=== PATIENT | male | born 2000 | race Caucasian/White ===

== ENCOUNTER → 2018-06-23 21:00 | Outpatient (CLI) | payer OTHER, SELFPAY ==
[2018-06-23 21:31] LABS: Free T3 3.2 pg/mL (2.18-3.98); T4 Free Direct 1.02 ng/dL (0.76-1.46); Thyroid Stim Hormone (TSH) 3.45 uIU/mL (0.358-3.74)
== END ==
PROVIDERS: Visit Provider Nurse Practitioner
DX: F41.9 Anxiety disorder, unspecified (principal); R53.82 Chronic fatigue, unspecified; F32.9 Major depressive disorder, single episode, unspecified
CPT/HCPCS: 84439; 84443; 84481

== ENCOUNTER → 2018-08-05 21:05 | Outpatient (CLI) | payer OTHER, SELFPAY ==
[2018-08-05 21:35] LABS: Thyroid Stim Hormone (TSH) 0.95 uIU/mL (0.358-3.74)
== END ==
PROVIDERS: Referring Provider Nurse Practitioner; Visit Provider Nurse Practitioner
DX: E03.9 Hypothyroidism, unspecified (principal)
CPT/HCPCS: 84443

== ENCOUNTER → 2019-06-01 22:30 | Outpatient (CLI) | payer OTHER, SELFPAY ==
[2019-06-01 17:32] VITALS: BMI 40.6
[2019-06-01 22:48] LABS: Absolute Lymphocyte Count 2.14 X10^3/uL (0.83-4.51); Basophil# 0.05 X10^3/uL; Basophil% 0.7 % (0-1); Eosinophil# 0.25 X10^3/uL; Eosinophils% 3.6 % (0-5); Hematocrit 41.8 % (40-54); Lymphocyte # 2.14 X10^3/ul (4.0); Lymphocyte % 31.1 % (19-41); Mean Corp Hgb Conc 33.5 g/dL (32-36); Mean Corpuscular Volume 86.7 fL (80-94); Mean Platelet Vol. 11.9 fl (6.2-12.0); Monocyte# 0.46 X10^3/uL; Monocyte% 6.7 % (0-10); NRBC Flagged by Analyzer 0 % (0-5); Neutrophil # 3.98 X10^3/uL (2.7-7.7); Neutrophil % 57.8 % (47-70); Platelet Count 222 K/mm3 (150-450); RBC Distribution Width CV 12.1 % (11.6-14.6); RBC Distribution Width SD 38.4 fl (35.1-43.9); Red Blood Count 4.82 M/mm3 (4.6-6.2); White Blood Count 6.9 K/mm3 (4.4-11.0)
[2019-06-01 23:11] LABS: ALB/GLOB Ratio 1.2 RATIO (0.9-2.4); AST(SGOT) 25 U/L (15-37); Alanine Aminotransfer ALT/SGPT 69 U/L (16-61); Alkaline Phosphatase 103 U/L (45-117); Anion Gap 8 (5-15); BUN 15 mg/dL (7-18); BUN/Creat Ratio 17.6 RATIO (10-20); CRP 7.15 mg/L (0.0-3.0); Calcium,Total 8.9 mg/dL (8.5-10.1); Chloride 105 mmol/L (98-107); Creatinine, Serum 0.85 mg/dL (0.70-1.30); EST Glomerular Filtration Rate 121 mL/min (>60); Est Glom Filt Rate - Afr Amer 146 mL/min (>60); Globulin 3.4 g/dL (2.2-4.2); Glucose 102 mg/dL (74-106); Potassium 3.8 mmol/L (3.5-5.1); Protein, Total 7.4 g/dL (6.4-8.2); Sodium Level 138 mmol/L (136-145); Thyroid Stim Hormone (TSH) 0.51 uIU/mL (0.358-3.74)
[2019-06-03 16:08] LABS: ANTINUCLEAR ANTIBODIES DIRECT Positive (Negative); Anti-Centromere B Ab <0.2 AI (0.0-0.9); Anti-Chromatin <0.2 AI (0.0-0.9); Anti-Jo <0.2 AI (0.0-0.9); Anti-Scleroderma-70 AB <0.2 AI (0.0-0.9); RNP Ab <0.2 AI (0.0-0.9); SJOGREN'S Anti-SS-A test < 0.2 AI (0.0-0.9); SJOGREN'S Anti-SS-B test 2.1 AI (0.0-0.9); Smith Ab <0.2 AI (0.0-0.9)
[2019-06-03 20:07] LABS: Immunoglobulin A 86 mg/dL (90-386)
[2019-06-04 10:02] LABS: Anti-dsDNA Ab <1 IU/mL (0-9)
[2019-06-04 10:03] LABS: CMV Antibody IgG < 0.60 U/mL (0.00-0.59); EBV Acute VCA IgM < 36.0 U/mL (0.0-35.9); EBV Early Antigen IgG <9.0 U/mL (0.0-8.9); Endomysial Antibody IgA Negative (Negative); Thyroid Peroxidase AB 18 IU/mL (0-34); t-Transglutaminase IgA <2 U/mL (0-3)
== END ==
PROVIDERS: Referring Provider Nurse Practitioner; Visit Provider Nurse Practitioner
DX: E03.9 Hypothyroidism, unspecified (principal); B27.90 Infectious mononucleosis, unspecified without complication; R53.82 Chronic fatigue, unspecified; R19.7 Diarrhea, unspecified
CPT/HCPCS: 80053; 82784; 83516; 84443; 85025; 86038; 86140; 86225; 86235; 86255; 86376; 86644; 86663; 86664; 86665

== ENCOUNTER → 2019-08-19 10:16 | Outpatient (CLI) | payer OTHER, SELFPAY ==
[2019-08-02 16:16] VITALS: BMI 40.1
--- NOTE | 2019-08-19 10:23 | RAD_ITS ---
STUDY: X-RAY - PELVIS REASON FOR EXAM: Male, 19 years old. Inflammatory polyarthropathy. TECHNIQUE: One view of the pelvis was obtained. COMPARISON: None. FINDINGS: There is a non-specific bowel gas pattern. Normal visualized soft tissue structures. Normal bilateral iliac wings, sacroiliac joints and visualized sacrum. Normal visualized bilateral superior and inferior pubic rami. Normal pubic symphysis. Normal ischial tuberosities. Normal visualized right femoral head. Normal right acetabulum. Normal right hip joint. Normal visualized left femoral head. Normal left acetabulum. Normal left hip joint. RAD/Pelvis 1 or 2 Views IMPRESSION: No proliferative or erosive arthropathy Electronically Signed: Yuan Saleh MD ([place]) at 12:41 EDT , Service support ,
[2019-08-19 11:26] LABS: EXAGEN MAILED SPECIMEN
[2019-08-19 12:09] LABS: Absolute Lymphocyte Count 1.83 X10^3/uL (0.83-4.51); Basophil# 0.04 X10^3/uL; Basophil% 0.8 % (0-1); Eosinophil# 0.11 X10^3/uL; Eosinophils% 2.1 % (0-5); Hematocrit 43.9 % (40-54); Hemoglobin 14.6 g/dL (13.0-16.5); Lymphocyte # 1.83 X10^3/ul (4.0); Lymphocyte % 34.5 % (19-41); Mean Corp Hgb Conc 33.3 g/dL (32-36); Mean Corpuscular Hgb 29.2 pg (27.0-32.0); Mean Corpuscular Volume 87.8 fL (80-94); Mean Platelet Vol. 11.6 fl (6.2-12.0); Monocyte# 0.33 X10^3/uL; Monocyte% 6.2 % (0-10); NRBC Flagged by Analyzer 0 % (0-5); Neutrophil # 2.98 X10^3/uL (2.7-7.7); Neutrophil % 56.2 % (47-70); Platelet Count 246 K/mm3 (150-450); RBC Distribution Width CV 12.2 % (11.6-14.6); RBC Distribution Width SD 38.9 fl (35.1-43.9); White Blood Count 5.3 K/mm3 (4.4-11.0)
[2019-08-19 12:14] LABS: Color, Urine Yellow (Yellow); Glucose, Dipstick Normal (Normal); Ketone-Dipstick Negative (Negative); Leukocyte Esterase-Dipstick Negative /ul (Negative); Nitrite-Dipstick Negative (Negative); Occult Blood-Urine Negative /ul (Negative); Protein-Dipstick Negative (Negative); Specific Gravity, Urine 1.015 (1.002-1.030); Urine Bilirubin Dipstick Negative (Negative); Urine Clarity Clear (Clear); Urine Urobilinogen Normal (Normal)
[2019-08-19 12:28] LABS: Protein, Urine (Random) 12.4 mg/dL (<11.9); Protein:Creat Ratio 100 mg/g CRE (0-200)
[2019-08-19 12:38] LABS: ALB/GLOB Ratio 1.2 RATIO (0.9-2.4); AST(SGOT) 25 U/L (15-37); Alanine Aminotransfer ALT/SGPT 77 U/L (16-61); Albumin, Serum 4.5 g/dL (3.2-5.0); Alkaline Phosphatase 92 U/L (45-117); Anion Gap 8 (5-15); BUN 14 mg/dL (7-18); BUN/Creat Ratio 14.7 RATIO (10-20); Calcium,Total 9.6 mg/dL (8.5-10.1); Chloride 104 mmol/L (98-107); Creatinine, Serum 0.96 mg/dL (0.70-1.30); EST Glomerular Filtration Rate 105 mL/min (>60); Est Glom Filt Rate - Afr Amer 128 mL/min (>60); Globulin 3.8 g/dL (2.2-4.2); Glucose 95 mg/dL (74-106); Potassium 4.1 mmol/L (3.5-5.1); Protein, Total 8.3 g/dL (6.4-8.2); Sodium Level 137 mmol/L (136-145)
[2019-08-19 13:15] LABS: Hepatitis B Surface Antibody Non-Reactive; Hepatitis B Surface Antigen Non-Reactive (Nonreactive); Hepatitis C Antibody Non-Reactive (Nonreactive)
[2019-08-24 12:21] LABS: HLA B27 Negative (.); Hepatitis B Core AB IgM Negative (Negative)
== END ==
PROVIDERS: Family Provider Nurse Practitioner; PCP Nurse Practitioner; Referring Provider Internal Medicine Rheumatology; Visit Provider Internal Medicine Rheumatology
DX: M06.4 Inflammatory polyarthropathy (principal); R76.8 Other specified abnormal immunological findings in serum
CPT/HCPCS: 72170; 80053; 81002; 81374; 82570; 84156; 85025; 86705; 86706; 86803; 87340

== ENCOUNTER → 2019-08-25 21:39 | Outpatient (CLI) | payer OTHER, SELFPAY ==
[2019-08-02 16:16] VITALS: BMI 40.1
[2019-08-25 22:08] LABS: Thyroid Stim Hormone (TSH) 1.59 uIU/mL (0.358-3.74)
== END ==
PROVIDERS: Family Provider Nurse Practitioner; PCP Nurse Practitioner; Referring Provider Nurse Practitioner; Visit Provider Nurse Practitioner
DX: E03.9 Hypothyroidism, unspecified (principal)
CPT/HCPCS: 84443

== ENCOUNTER → 2019-12-08 13:13 | Outpatient (CLI) | payer OTHER, SELFPAY ==
[2019-12-05 17:34] VITALS: BMI 40.7
[2019-12-08 14:16] LABS: Absolute Lymphocyte Count 1.88 X10^3/uL (0.83-4.51); Absolute Neutrophil Count 2.8 X10^3/uL (2.0-7.7); Basophil# 0.03 X10^3/uL; Basophil% 0.5 % (0-1); Eosinophil# 0.26 X10^3/uL; Eosinophils% 4.7 % (0-5); Hematocrit 43.4 % (40-54); Hemoglobin 14.2 g/dL (13.0-16.5); Lymphocyte # 1.88 X10^3/ul (4.0); Lymphocyte % 33.9 % (19-41); Mean Corp Hgb Conc 32.7 g/dL (32-36); Mean Corpuscular Hgb 28.6 pg (27.0-32.0); Mean Corpuscular Volume 87.3 fL (80-94); Mean Platelet Vol. 10.9 fl (6.2-12.0); Monocyte# 0.54 X10^3/uL; Monocyte% 9.7 % (0-10); NRBC Flagged by Analyzer 0 % (0-5); Neutrophil # 2.83 X10^3/uL (2.7-7.7); Platelet Count 231 K/mm3 (150-450); RBC Distribution Width CV 12.4 % (11.6-14.6); RBC Distribution Width SD 39.3 fl (35.1-43.9); Red Blood Count 4.97 M/mm3 (4.6-6.2); White Blood Count 5.6 K/mm3 (4.4-11.0)
[2019-12-08 14:54] LABS: AST(SGOT) 21 U/L (15-37); Alanine Aminotransfer ALT/SGPT 56 U/L (16-61); Albumin, Serum 4.1 g/dL (3.2-5.0); Alkaline Phosphatase 87 U/L (45-117); Anion Gap 3 (5-15); BUN 15 mg/dL (7-18); BUN/Creat Ratio 13.6 RATIO (10-20); Calcium,Total 9.6 mg/dL (8.5-10.1); Chloride 107 mmol/L (98-107); EST Glomerular Filtration Rate 89 mL/min (>60); Est Glom Filt Rate - Afr Amer 108 mL/min (>60); Glucose 63 mg/dL (74-106); Potassium 3.6 mmol/L (3.5-5.1); Protein, Total 8.1 g/dL (6.4-8.2); Sodium Level 142 mmol/L (136-145)
== END ==
PROVIDERS: PCP Nurse Practitioner; Referring Provider Internal Medicine Rheumatology; Visit Provider Internal Medicine Rheumatology
DX: M06.4 Inflammatory polyarthropathy (principal); R76.8 Other specified abnormal immunological findings in serum; I10 Essential (primary) hypertension; E03.9 Hypothyroidism, unspecified; F41.9 Anxiety disorder, unspecified; F32.9 Major depressive disorder, single episode, unspecified
CPT/HCPCS: 36415; 80053; 85025

== ENCOUNTER → 2020-12-21 21:44 | Outpatient (CLI) | payer BC, OTHER, SELFPAY ==
[2020-12-21 15:01] VITALS: BMI 40.3
[2020-12-21 22:01] LABS: Absolute Lymphocyte Count 2.34 X10^3/uL (0.83-4.51); Absolute Neutrophil Count 3.4 X10^3/uL (2.0-7.7); Basophil# 0.03 X10^3/uL; Basophil% 0.5 % (0-1); Eosinophil# 0.11 X10^3/uL; Eosinophils% 1.8 % (0-5); Hematocrit 44.9 % (40-54); Hemoglobin 15.3 g/dL (13.0-16.5); Lymphocyte # 2.34 X10^3/ul (4.0); Lymphocyte % 37.6 % (19-41); Mean Corp Hgb Conc 34.1 g/dL (32-36); Mean Corpuscular Hgb 29.4 pg (27.0-32.0); Mean Corpuscular Volume 86.3 fL (80-94); Mean Platelet Vol. 11.1 fl (6.2-12.0); Monocyte# 0.36 X10^3/uL; Monocyte% 5.8 % (0-10); NRBC Flagged by Analyzer 0 % (0-5); Neutrophil # 3.38 X10^3/uL (2.7-7.7); Neutrophil % 54.1 % (47-70); Platelet Count 250 K/mm3 (150-450); RBC Distribution Width CV 12.2 % (11.6-14.6); RBC Distribution Width SD 38.5 fl (35.1-43.9); White Blood Count 6.2 K/mm3 (4.4-11.0)
[2020-12-21 22:22] LABS: ALB/GLOB Ratio 1.1 RATIO (0.9-2.4); AST(SGOT) 20 U/L (15-37); Alanine Aminotransfer ALT/SGPT 60 U/L (16-61); Albumin, Serum 4.5 g/dL (3.2-5.0); Alkaline Phosphatase 95 U/L (45-117); Anion Gap 7 (5-15); BUN 15 mg/dL (7-18); BUN/Creat Ratio 14.4 RATIO (10-20); Calcium,Total 9.7 mg/dL (8.5-10.1); Chloride 104 mmol/L (98-107); Creatinine, Serum 1.04 mg/dL (0.70-1.30); EST Glomerular Filtration Rate 94 mL/min (>60); Est Glom Filt Rate - Afr Amer 114 mL/min (>60); Glucose 87 mg/dL (74-106); Potassium 3.9 mmol/L (3.5-5.1); Protein, Total 8.5 g/dL (6.4-8.2); Sodium Level 139 mmol/L (136-145); Thyroid Stim Hormone (TSH) 1.47 uIU/mL (0.358-3.74)
== END ==
PROVIDERS: PCP Nurse Practitioner; Visit Provider Nurse Practitioner
DX: I10 Essential (primary) hypertension (principal); E03.9 Hypothyroidism, unspecified
CPT/HCPCS: 80053; 84443; 85025

== ENCOUNTER 2021-10-31 10:30 | Outpatient (RCR) | payer OTHER, SELFPAY ==
--- NOTE | 2021-10-07 09:49 | HP.PTEVAL ---
Patient's Visit Information ROYCE FELDMAN is a 21 year old M referred to Physical Therapy by Dr. Heriberto Capone MD with a diagnosis of R shoulder instability. Date of Evaluation: 10/07/21 Physical Therapist: Marcial Cooney PT, ATC - Visit Plan Frequency: 2-3x /Week Duration: 4-6 Weeks Plan: R shoulder rot cuff strengthening, scap stab ex's, UBE, and HEP - Subjective Pt reports he has had R shoulder pain for the past 6 mos. Pt notes he was playing softball at the time and after throwing a ball, his R UE went numb. Pt reports he has had pain since, especially with any overhead or throwing activity. Pt reports he kept icing and hoped his shoulder would get better, but it didnt and finally he went to the doctor. Pt notes he has had xrays and an MRI which showed bursitis and instability of the R shoulder. Pt reports occasional sleep difficulty if he sleeps wrong on his shoulder. Pt denies any tingling or numbness at this time. Pt reports he is R hand dominant. Pt is not currently employed. R shoulder pain is 0/10 at rest, 3/10 at worst (when he is driving and reaches his arm out to the side to rest it on the other arm rest - Pain R shoulder Pain Intensity (Out of 10): 0 Pain Intensity Range: 3 - Objective Neuro: B UE sensation is WNL to light touch. B bicepital reflex= 2/3. Palpation: Pt has mild tenderness over the LHB tendon. No obvious deformity noted at this time. ROM: L shoulder flex= 165, abd= 170, ER= 50, IR WNL; R shoulder flex= 135, abd= 140, ER= 30, IR WNL. MMT: B shoulder strength is 5/5 throughout with the exception of R shoulder ER= 4-/5. Special tests: Pos HK test - Balance/Special Test Scores Quick DASH Score: 20.4525 - Goals Goal 1:: Decrease R shoulder pain x 50% to aid with sleep Goal Time Frame: 4-6 Weeks Goal 2:: Increase R shoulder strength x 1 grade to aid with IADL's Goal Time Frame: 4-6 Weeks Goal 3:: Increase R shoulder flex and abd ROM x 20 degrees to aid with overhead activity Goal Time Frame: 4-6 Weeks Goal 4:: I with HEP Goal Time Frame: 4-6 Weeks - Rehabilitation Potential Physical Therapy Diagnosis: Pt has R shoulder pain, weakness, and instability secondary to R shoulder bursitis Rehabilitation Potential: Good - Anticipated Interventions Patient/Client Instruction: Educate patient on: Condition, Plan of Care For the Purpose of:: To improve self management Therapeutic Exercise to Include: Strength training, Endurance training, Body mechanics, Active ROM, Scapular Strength/Stabilization For the Purpose of:: To decrease pain, To increase ROM, To improve muscle performance and motor function Cryotherapy (ice pack, ice massage): Yes For the Purpose of:: To decrease pain Thank you for the opportunity to evaluate your patient. For Medicare and Medicare HMO plans, please review the plan of care and approve it. It will need to be FAXED BACK to us at [phone] for Medicare purposes. For Medicare only, by signing this I certify the plan of care. Please let me know if there are questions or concerns regarding this plan of care. Physician Signature: Date:
--- NOTE | 2021-10-31 10:48 | HP.PTREVAL ---
Dr. Heriberto Capone MD, It has been my pleasure to treat ROYCE FELDMAN over the last 9 visits for R shoulder instability. Please see the progress note below for an update on the physical therapy plan of care! Subjective: I dont have any pain today Objective/Function: R shoulder pain 0/10. R shoulder ROM: flex= 170, abd= 170, ER= 55. R shoulder MMT: 5/5 throughout. Pt is I with HEP and has achieved all Rx goals Plan Plan: Discharge Balance/Gait/Functional tests - Balance/Special Test Scores Quick DASH Score: 4.5450 Goals Goal 1:: Decrease R shoulder pain x 50% to aid with sleep Goal Time Frame: 4-6 Weeks Goal Progress: Goal Met Goal 2:: Increase R shoulder strength x 1 grade to aid with IADL's Goal Time Frame: 4-6 Weeks Goal Progress: Goal Met Goal 3:: Increase R shoulder flex and abd ROM x 20 degrees to aid with overhead activity Goal Time Frame: 4-6 Weeks Goal Progress: Goal Met Goal 4:: I with HEP Goal Time Frame: 4-6 Weeks Goal Progress: Goal Met Anticipated Interventions Patient/Client Instruction: Educate patient on: Condition, Plan of Care For the Purpose of:: To improve self management Therapeutic Exercise to Include: Strength training, Endurance training, Body mechanics, Active ROM, Scapular Strength/Stabilization For the Purpose of:: To decrease pain, To increase ROM, To improve muscle performance and motor function Cryotherapy (ice pack, ice massage): Yes For the Purpose of:: To decrease pain Please do not hesitate to contact me at [phone] by phone or if you have questions or concerns regarding this new plan of care! Sincerely, Marcial Cooney, PT, ATC
--- NOTE | 2021-12-23 15:09 | HP.PT.NRP ---
ROYCE FELDMAN was seen in my office for initial evaluation on 10/07/21. The following Plan of Care was established for this patient: Initial Frequency: 2-3x /Week Initial Duration: 4-6 Weeks Patient/Client Instruction: Educate patient on: Condition, Plan of Care For the Purpose of:: To improve self management Therapeutic Exercise to Include: Strength training, Endurance training, Body mechanics, Active ROM, Scapular Strength/Stabilization For the Purpose of:: To decrease pain, To increase ROM, To improve muscle performance and motor function Cryotherapy (ice pack, ice massage): Yes For the Purpose of:: To decrease pain This patient was last seen in our office . Pertinent comments regarding their Physical therapy will appear below: Pt was treated for R shoulder pain for 9 visits through the date of 10/31/21. Pt has not returned through todays date and is discontinued at this time. At this point I will be discontinuing this patient from physical therapy. I would be happy to see this patient again in the future if found appropriate by the physician. Thank you! Marcial Cooney, PT, ATC Balance/Gait/Functional tests - Balance/Special Test Scores Quick DASH Score: 4.5450
== END 2021-10-31 19:00 | disposition home or self-care (01) ==
LOC: PT 10:30
PROVIDERS: PCP Nurse Practitioner; Referring Provider Orthopaedic Surgery; Visit Provider Orthopaedic Surgery
DX: M75.51 Bursitis of right shoulder (principal); M25.311 Other instability, right shoulder
CPT/HCPCS: 97110; 97161; 97164

== ENCOUNTER → 2022-06-26 | Outpatient (CLI) | payer OTHER, SELFPAY ==
[2022-06-26 22:48] LABS: Absolute Lymphocyte Count 2.78 X10^3/uL (0.83-4.51); Absolute Neutrophil Count 3.7 X10^3/uL (2.0-7.7); Basophil# 0.05 X10^3/uL; Basophil% 0.7 % (0-1); Eosinophils% 2.8 % (0-5); Hematocrit 43.6 % (40-54); Hemoglobin 14.7 g/dL (13.0-16.5); Lymphocyte # 2.78 X10^3/ul (0.83-4.51); Lymphocyte % 38.6 % (19-41); Mean Corp Hgb Conc 33.7 g/dL (32-36); Mean Platelet Vol. 12.3 fl (6.2-12.0); Monocyte# 0.48 X10^3/uL; Monocyte% 6.7 % (0-10); NRBC Flagged by Analyzer 0 % (0-5); Neutrophil # 3.66 X10^3/uL (2.7-7.7); Neutrophil % 50.8 % (47-70); Platelet Count 251 K/mm3 (150-450); RBC Distribution Width CV 12.4 % (11.6-14.6); Red Blood Count 5.07 M/mm3 (4.6-6.2); White Blood Count 7.2 K/mm3 (4.4-11.0)
[2022-06-26 23:25] LABS: ALB/GLOB Ratio 1.1 RATIO (0.9-2.4); AST(SGOT) 22 U/L (15-37); Alanine Aminotransfer ALT/SGPT 64 U/L (16-61); Albumin, Serum 4.3 g/dL (3.2-5.0); Alkaline Phosphatase 90 U/L (45-117); Anion Gap 9 (5-15); BUN 17 mg/dL (7-18); BUN/Creat Ratio 16.7 RATIO (10-20); Calcium,Total 9.3 mg/dL (8.5-10.1); Chloride 105 mmol/L (98-107); Cholesterol 274 mg/dL (200); Creatinine, Serum 1.02 mg/dL (0.70-1.30); EST Glomerular Filtration Rate 95 mL/min (>60); Est Glom Filt Rate - Afr Amer 115 mL/min (>60); Globulin 3.8 g/dL (2.2-4.2); Glucose 87 mg/dL (74-106); High Density Lipoprotein 23 mg/dL; Potassium 3.6 mmol/L (3.5-5.1); Protein, Total 8.1 g/dL (6.4-8.2); Sodium Level 138 mmol/L (136-145); Thyroid Stim Hormone (TSH) 2.51 uIU/mL (0.358-3.74); Triglycerides 340 mg/dL; Very Low Density Lipoprotein 68 mg/dL (5-40)
== END | disposition home or self-care (01) ==
PROVIDERS: PCP Nurse Practitioner; Visit Provider Nurse Practitioner
DX: I10 Essential (primary) hypertension (principal); E03.9 Hypothyroidism, unspecified
CPT/HCPCS: 80053; 80061; 84443; 85025

== ENCOUNTER → 2023-08-07 | Outpatient (CLI) | payer OTHER, SELFPAY ==
[2023-08-07 20:55] LABS: Absolute Lymphocyte Count 3.04 X10^3/uL (0.83-4.51); Absolute Neutrophil Count 4.1 X10^3/uL (2.0-7.7); Basophil# 0.05 X10^3/uL; Basophil% 0.6 % (0-1); Eosinophil# 0.23 X10^3/uL; Eosinophils% 2.9 % (0-5); Hematocrit 43.1 % (40-54); Hemoglobin 14.3 g/dL (13.0-16.5); Lymphocyte # 3.04 X10^3/ul (0.83-4.51); Lymphocyte % 37.8 % (19-41); Mean Corp Hgb Conc 33.2 g/dL (32-36); Mean Corpuscular Hgb 29.1 pg (27.0-32.0); Mean Corpuscular Volume 87.8 fL (80-94); Mean Platelet Vol. 11.2 fl (6.2-12.0); Monocyte# 0.55 X10^3/uL; Monocyte% 6.8 % (0-10); NRBC Flagged by Analyzer 0 % (0-5); Neutrophil # 4.14 X10^3/uL (2.7-7.7); Neutrophil % 51.5 % (47-70); Platelet Count 266 K/mm3 (150-450); RBC Distribution Width SD 38.8 fl (35.1-43.9); Red Blood Count 4.91 M/mm3 (4.6-6.2)
[2023-08-07 21:16] LABS: ALB/GLOB Ratio 1.1 RATIO (0.9-2.4); AST(SGOT) 27 U/L (15-37); Alanine Aminotransfer ALT/SGPT 67 U/L (16-61); Albumin, Serum 4.2 g/dL (3.2-5.0); Alkaline Phosphatase 65 U/L (45-117); Anion Gap 6 (5-15); BUN 18 mg/dL (7-18); Calcium,Total 9.1 mg/dL (8.5-10.1); Chloride 109 mmol/L (98-107); Cholesterol 262 mg/dL (200); Creatinine, Serum 0.95 mg/dL (0.70-1.30); EST Glomerular Filtration Rate 103 mL/min (>60); Est Glom Filt Rate - Afr Amer 124 mL/min (>60); Globulin 3.7 g/dL (2.2-4.2); Glucose 90 mg/dL (74-106); High Density Lipoprotein 25 mg/dL; Potassium 3.7 mmol/L (3.5-5.1); Protein, Total 7.9 g/dL (6.4-8.2); Sodium Level 140 mmol/L (136-145); Thyroid Stim Hormone (TSH) 2.32 uIU/mL (0.358-3.74); Triglycerides 322 mg/dL; Very Low Density Lipoprotein 64 mg/dL (5-40)
== END | disposition home or self-care (01) ==
PROVIDERS: PCP Nurse Practitioner; Visit Provider Nurse Practitioner
DX: I10 Essential (primary) hypertension (principal); E03.9 Hypothyroidism, unspecified
CPT/HCPCS: 80053; 80061; 84443; 85025

== ENCOUNTER → 2024-10-11 | Outpatient (CLI) | payer OTHER, SELFPAY ==
[2024-10-11 21:20] LABS: Absolute Lymphocyte Count 2.97 X10^3/uL (0.83-4.51); Absolute Neutrophil Count 4.1 X10^3/uL (2.0-7.7); Basophil# 0.05 X10^3/uL; Basophil% 0.6 % (0-1); Eosinophil# 0.25 X10^3/uL; Eosinophils% 3.1 % (0-5); Hematocrit 48.3 % (40-54); Hemoglobin 15.4 g/dL (13.0-16.5); Lymphocyte # 2.97 X10^3/ul (0.83-4.51); Lymphocyte % 36.8 % (19-41); Mean Corp Hgb Conc 31.9 g/dL (32-36); Mean Corpuscular Hgb 28.1 pg (27.0-32.0); Mean Corpuscular Volume 88.1 fL (80-94); Mean Platelet Vol. 11.3 fl (6.2-12.0); Monocyte# 0.73 X10^3/uL; Monocyte% 9.1 % (0-10); NRBC Flagged by Analyzer 0 % (0-5); Neutrophil # 4.05 X10^3/uL (2.7-7.7); Neutrophil % 50.3 % (47-70); Platelet Count 293 K/mm3 (150-450); RBC Distribution Width CV 12.1 % (11.6-14.6); RBC Distribution Width SD 39.3 fl (35.1-43.9); Red Blood Count 5.48 M/mm3 (4.6-6.2); White Blood Count 8.1 K/mm3 (4.4-11.0)
[2024-10-11 21:45] LABS: ALB/GLOB Ratio 1.1 RATIO (0.9-2.4); AST(SGOT) 26 U/L (15-37); Alanine Aminotransfer ALT/SGPT 84 U/L (16-61); Albumin, Serum 4.5 g/dL (3.2-5.0); Alkaline Phosphatase 77 U/L (45-117); Anion Gap 2 (5-15); BUN 16 mg/dL (7-18); BUN/Creat Ratio 17.1 RATIO (10-20); Calcium,Total 9.6 mg/dL (8.5-10.1); Chloride 104 mmol/L (98-107); Cholesterol 236 mg/dL (200); Creatinine, Serum 0.94 mg/dL (0.70-1.30); EST Glomerular Filtration Rate 103 mL/min (>60); Est Glom Filt Rate - Afr Amer 125 mL/min (>60); Glucose 112 mg/dL (74-106); High Density Lipoprotein 21 mg/dL; Potassium 4.8 mmol/L (3.5-5.1); Protein, Total 8.5 g/dL (6.4-8.2); Sodium Level 136 mmol/L (136-145); Triglycerides 389 mg/dL; Very Low Density Lipoprotein 78 mg/dL (5-40)
== END | disposition home or self-care (01) ==
PROVIDERS: PCP Nurse Practitioner; Referring Provider Nurse Practitioner; Visit Provider Nurse Practitioner
DX: E03.9 Hypothyroidism, unspecified (principal); I10 Essential (primary) hypertension; F41.9 Anxiety disorder, unspecified
CPT/HCPCS: 80053; 80061; 84443; 85025

== ENCOUNTER → 2025-07-18 | Outpatient (CLI) | payer OTHER, SELFPAY ==
--- OUTSIDE RECORDS SUMMARY | 2025-07-18 21:45 | XMS RPT_ITS | CCD ---
Author Organization [facility] Inform ion Partnership [facility] Care Team Providers Care Radio Recorder Name Role Phone Latisha BRAMBILA, Saniya Mehta Primary Care Provider Andre HERNANDEZ, Janice Referring Unavailable Andre HERNANDEZ, Janice Attending Unavailable Andre HERNANDEZ, Janice Primary Care Unavailable Allergies Allergy Classification Reported Allergen(s) Allergy Type Date of Onset Reaction(s) Facility (2 sources) Penicillins; Translations: [PENICILLINS] Allergy to substance 06-22-2018 [facility] (1 source) Penicillins Drug Allergy 06-25-2018 [facility] (1 source) Penicillins Drug allergy (disorder) 06-22-[address] [facility] Repository Medications Current Medications Medication Drug Class(es) Dates Sig (Normalized) Sig (Original) doxycycline hyclate 100 mg oral tablet (2 sources) Tetracycline-clas s Drug Start: 12-10-2023 End: 12-15-2023 take 1 tablet by mouth twice daily doxycycline (VIBRA-TABS) 100 mg tablet Take 1 tablet by mouth two times a day for 5 days. 10 tablet 0 12/10/2023 12/15/2023 Active Start: 09-09-2021 End: 09-16-2021 take 100 mg by mouth twice daily Doxycycline Hyclate Discontinued 100 MG PO TWICE A DAY 14 7 September 09, 2021 1:00am September 16, 2021 1:01am Comment on above: Take 1 tablet by rossy th two times a day for 5 days. mupirocin 0.02 mg/mg topical ointment (1 source) RNA Synthetase Inhibitor Antibacterial Start: 12-10-2023 End: 12-15-2023 mupirocin (BACTROBAN) 2 % ointment Apply to affected area three times a day for 5 days. 30 g 0 12/10/2023 12/15/2023 Active Comment on above: Apply to affected ar ea three times a day for 5 days. Completed/Discontinued Medications Medication Drug Class(es) Dates Sig (Normalized) Sig (Original) atorvastatin 10 mg oral tablet (2 sources) HMG-CoA Reductase Inhibitor Start: 11-05-2023 take 1 tablet by mouth once daily at bedtime atorvastatin (LIPITOR) 10 mg tablet Take 10 mg by mouth daily at bedtime. 0 11/05/2023 Active Start: 08-10-2023 take 10 mg by mouth at bedtime Atorvastatin Active 10 MG PO AT BEDTIME August 10, 2023 12:00am Comment on above: Take 10 mg by mouth daily at bedtime. azithromycin 250 mg oral tablet (1 source) Macrolide Antimicrobial Start: 9 End: 9 Azithromycin Discontinued 250 MG PO daily 6 August 02, 2019 12:00am August 07, 2019 12:09am 2 po qd for 1 day then 1 po qd for 4 days with food or after eating benzonatate 200 mg oral capsule (1 source) Non-narcotic Antitussive Start: 9 End: 9 take 200 mg by mouth three times daily Benzonatate Discontinued 200 MG PO THREE TIMES A DAY November 18, 2018 1:00am June 01, 2019 5:54pm cefuroxime 500 mg oral tablet (3 sources) Cephalosporin Antibacterial Start: 2 End: 3 take 500 mg by mouth twice daily Cefuroxime Axetil Discontinued 500 MG PO TWICE A DAY October 08, 2022 6:19pm August 07, 2023 6:59pm Start: 06-01-2019 End: 08-02-2019 take 500 mg by mouth twice daily Cefuroxime Axetil Discontinued 500 MG PO TWICE A DAY June 01, 2019 12:00am August 02, 2019 4:19pm Start: 11-18-2018 End: 11-28-2018 take 500 mg by mouth every twelve hours Cefuroxime Axetil Discontinued 500 MG PO Q12H 14 08November 18, 2018 1:00am November 28, 2018 1:09am cetirizine hydrochloride 10 mg oral capsule (1 source) Histamine-1 Receptor Antagonist Start: 06-22-2018 End: 08-02-2019 take 1 capsule by mouth once daily Cetirizine (Zyrtec) 10 mg capsule Discontinued 10 MG PO DAILY June 22, 2018 12:00am August 02, 2019 4:19pm ciprofloxacin 500 mg oral tablet (1 source) Quinolone Antimicrobial Start: 12-05-2019 End: 12-21-2020 take 1 tablet by mouth twice daily Ciprofloxacin Hcl (Cipro) 500 mg tablet Discontinued 500 MG PO TWICE A DAY December 05, 2019 1:00am December 21, 2020 4:02pm DULoxetine 60 mg delayed release oral capsule (6 sources) Serotonin and Norepinephrine Reuptake Inhibitor Start: 07-13-2018 End: 06-26-2022 take 60 mg by mouth once daily Duloxetine Discontinued 60 MG PO DAILY December 21, 2020 4:04pm June 26, 2022 6:40pm Start: 06-22-2018 End: 07-13-2018 DULoxetine (CYMBALTA) 30 mg capsule hydroxychloroquine sulfate 200 mg oral tablet (1 source) Antimalarial, Antirheumatic Agent Start: 10-03-2019 End: 12-21-2020 take 1 tablet by mouth twice daily Hydroxychloroquine (Plaquenil) 200 mg tablet Discontinued 200 MG PO TWICE A DAY October 03, 2019 1:00am December 21, 2020 4:03pm levothyroxine sodium 0.05 mg oral tablet (7 sources) l-Thyroxine Start: 11-05-2023 take 1 tablet by mouth once levothyroxine (SYNTHROID) 50 mcg tablet Take 1 tablet by mouth every afternoon. 0 11/05/2023 Active Start: 06-24-2018 End: 08-10-2023 take 50 ug by mouth once daily Levothyroxine Active 50 MCG PO DAILY August 10, 2023 11:56am Comment on above: Take 1 tablet by rossy th every afternoon. lisinopril 20 mg oral tablet (8 sources) Angiotensin Converting Enzyme Inhibitor Start: 11-05-2023 take 1 tablet by mouth once daily lisinopril (ZESTRIL) 20 mg tablet TAKE 1 TABLET (20 MG) ORALLY DAILY 0 11/05/2023 Active Start: 07-13-2018 End: 08-07-2023 take 20 mg by mouth once daily Lisinopril Active 20 MG PO DAILY August 07, 2023 7:03pm Comment on above: TAKE 1 TABLET (20 MG ) ORALLY DAILY meloxicam 7.5 mg oral tablet (1 source) Nonsteroidal Anti-inflammatory Drug Start: 06-25-2018 take 1 tablet by mouth once daily meloxicam (MOBIC) 7.5 mg tablet Take 1 tablet by mouth once daily. 30 tablet 2 06/25/2018 Active Comment on above: Take 1 tablet by rossy once daily. Problems Active Problems Problem Classification Problem Date Documented Date Episodic/Chronic Anxiety disorders (1 source) Anxiety; Translations: [Anxiety disorder, unspecified] 06-22-2018 Chronic Chronic obstructive pulmonary disease and bronchiectasis (1 source) Bronchitis; Translations: [Bronchitis, not specified as acute or chronic] 12-05-2019 Episodic Coma; stupor; and brain damage (1 source) Drowsy; Translations: [Somnolence] 06-22-2018 Episodic Essential hypertension (1 source) Hypertensive disorder; Translations: [Essential (primary) hypertension] 08-05-2018 Chronic Headache; including migraine (1 source) Frequent headache; Translations: [Frequent headaches] 06-22-2018 Episodic Immunizations and screening for infectious disease (1 source) Needs influenza immunization; Translations: [Encounter for immunization] 08-15-2020 Episodic Malaise and fatigue (1 source) Fatigue; Translations: [Chronic fatigue, unspecified] 06-22-2018 Chronic Mood disorders (1 source) Depressive disorder; Translations: [Depression] 08-05-2018 Chronic Other bone disease and musculoskeletal deformities (1 source) [place] Schlatter disease; 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, excluding foot] Onset: 09-26-2010 09-26-2010 Chronic Other circulatory disease (1 source) Elevated blood pressure; Translations: [Elevated blood-pressure reading, without diagnosis of hypertension] 07-13-2018 Episodic Other non-traumatic joint disorders (1 source) Swelling of finger joint; Translations: [Effusion, right hand] 12-10-2023 Episodic Other upper respiratory infections (1 source) Maxillary sinusitis; Translations: [Chronic maxillary sinusitis] 12-05-2019 Chronic Other upper respiratory infections (2 sources) Acute maxillary sinusitis; Translations: [Acute maxillary sinusitis, unspecified] 06-01-2019 Episodic Otitis media and related conditions (3 sources) Otitis media of left ear; Translations: [Otitis media, unspecified, left ear] 11-18-2018 Episodic Thyroid disorders (2 sources) Hypothyroidism; Translations: [Hypothyroidism, unspecified] Onset: 11-12-2024 06-01-2019 Chronic Unclassified (1 source) Pain, unspecified; Translations: [Pain, unspecified] Onset: 06-25-2018 Viral infection (1 source) Karen-Queen virus disease; Translations: [Infectious mononucleosis, unspecified without complication] 06-01-2019 Episodic Past or Other Problems Problem Classification Problem Date Documented Da te Episodic/Chronic Fracture of lower limb (1 source) Fracture of ankle; Translations: [Other fracture of unspecified lower leg, initial encounter for closed fracture] Onset: 09-30-2013 09-30-2013 Episodic Other non-traumatic joint disorders (1 source) Pain in left knee; Translations: [Pain in joint, lower leg] Onset: 09-18-2010 09-18-2010 Episodic Other non-traumatic joint disorders (1 source) Pain in right knee; Translations: [Pain in joint, lower leg] Onset: 11-08-2010 11-08-2010 Episodic Other non-traumatic joint disorders (1 source) Ankle pain; Translations: [Pain in unspecified ankle and joints of unspecified foot] Onset: 11-03-2013 11-03-2013 Episodic Unclassified (1 source) FX ANKLE IN THE GROWTH PLATE 05-26-2022 Results Test Name Value Interpretation Reference Range Facility CBC W/Diff, Automatedon 09-25 Absolute Lymph 2.97 X10 3/uL Normal 0.83-4.[address] [facility] Comment on above: Performed By: #### L 500.4050, L100.0100, L500.4100, [id number] #### [facility] [address] [place], [place], [id number] Absolute Neut 4.1 X10 3/uL Normal 2.0-7.[address] [facility] Comment on above: Performed By: #### L 500.4050, L100.0100, L500.4100, [id number] #### [facility] [address] [place], [address] Basophils/100 WBC (Bld) 0.6 % Normal 0-1 [facility] Comment on above: Performed By: #### L 500.4050, L100.0100, L500.4100, [id number] #### [facility] [address] [place], [address] Eosinophils/100 WBC (Bld) 3.1 % Normal 0-[address] [facility] Comment on above: Performed By: #### L 500.4050, L100.0100, L500.4100, [id number] #### [facility] [address] [place], [address] Erythrocyte distribution width (RBC) [Ratio] 12.1 % Normal 11.6-14.[address] [facility] Comment on above: Performed By: #### L 500.4050, L100.0100, L500.4100, [id number] #### [facility] [address] [place], [address] Hematocrit (Bld) [Volume fraction] 48.3 % Normal 40-[address] [facility] Comment on above: Performed By: #### L 500.4050, L100.0100, L500.4100, [id number] #### [facility] [address] [place], [address] Hemoglobin (Bld) [Mass/Vol] 15.4 g/dL Normal 13.0-16.[address] [facility] Comment on above: Performed By: #### L 500.4050, L100.0100, L500.4100, [id number] #### [facility] [address] [place], [address] IG% 0.100 Normal 0.0-0.[address] [facility] Comment on above: Result Comment: IG% - Immature Granulocytes (promyelocytes, myelocytes and metamyelocytes) > 1% indicates that a LEFT SHIFT is Present. Performed By: #### L 500.4050, L100.0100, L500.4100, [id number] #### [facility] [address] [place], [id number] Lymphocytes/100 WBC (Bld) 36.8 % Normal 19-[address] [facility] Comment on above: Performed By: #### L 500.4050, L100.0100, L500.4100, [id number] #### [facility] [address] [place], [address] MCH (RBC) [Entitic mass] 28.1 pg Normal 27.0-32.[address] [facility] Comment on above: Performed By: #### L 500.4050, L100.0100, L500.4100, [id number] #### [facility] [address] [place], [address] MCHC (RBC) [Mass/Vol] 31.9 g/dL Low 32-36 [facility] Comment on above: Performed By: #### L 500.4050, L100.0100, L500.4100, [id number] #### [facility] [address] [place], [address] MCV (RBC) [Entitic vol] 88.1 fL Normal 80-94 [facility] Comment on above: Performed By: #### L 500.4050, L100.0100, L500.4100, [id number] #### [facility] [address] [place], [address] Monocytes/100 WBC (Bld) 9.1 % Normal 0-10 [facility] Comment on above: Performed By: #### L 500.4050, L100.0100, L500.4100, [id number] #### [facility] [address] [place], [address] Neutrophils/100 WBC (Bld) 50.3 % Normal 47-[address] [facility] Comment on above: Performed By: #### L 500.4050, L100.0100, L500.4100, [id number] #### [facility] [address] [place], [address] Nucleated RBC (Bld) [#/Vol] 0 10*3/uL Normal 0-[address] [facility] Comment on above: Performed By: #### L 500.4050, L100.0100, L500.4100, [id number] #### [facility] [address] [place], [address] Platelet mean volume (Bld) [Entitic vol] 11.3 fL Normal 6.2-12.[address] [facility] Comment on above: Performed By: #### L 500.4050, L100.0100, L500.4100, [id number] #### [facility] [address] [place], [address] Platelets (Bld) [#/Vol] 293 10*3/uL Normal 150-[address] [facility] Comment on above: Performed By: #### L 500.4050, L100.0100, L500.4100, [id number] #### [facility] [address] [place], [address] RBC (Bld) [#/Vol] 5.48 10*6/uL Normal 4.6-6.2 [facility] Comment on above: Performed By: #### L 500.4050, L100.0100, L500.4100, [id number] #### [facility] [address] [place], [address] RDW SD 39.3 fl Normal 35.1-43.[address] [facility] Comment on above: Performed By: #### L 500.4050, L100.0100, L500.4100, [id number] #### [facility] [address] [place], [address] WBC (Bld) [#/Vol] 8.1 10*3/uL Normal 4.4-11.0 [facility] Comment on above: Performed By: #### L 500.4050, L100.0100, L500.4100, [id number] #### [facility] [address] [place], [address] Comprehensive Metabolic Prof ilon 10-11-2024 Albumin [Mass/Vol] 4.5 g/dL Normal 3.2-5.0 [facility] Comment on above: Performed By: #### L 500.4050, L100.0100, L500.4100, [id number] #### [facility] [address] [place], [id number] Albumin/Globulin [Mass ratio] 1.1 {ratio} Normal 0.9-2.[address] [facility] Comment on above: Performed By: #### L 500.4050, L100.0100, L500.4100, [id number] #### [facility] [address] [place], [address] ALK P 77 U/L Normal 45-[address] [facility] Comment on above: Performed By: #### L 500.4050, L100.0100, L500.4100, [id number] #### [facility] [address] [place], [address] ALT [Catalytic activity/Vol] 84 U/L High 16-[address] [facility] Comment on above: Performed By: #### L 500.4050, L100.0100, L500.4100, [id number] #### [facility] [address] [place], [address] AST [Catalytic activity/Vol] 26 U/L Normal 15-[address] [facility] Comment on above: Performed By: #### L 500.4050, L100.0100, L500.4100, [id number] #### [facility] [address] [place], [address] Bilirubin [Mass/Vol] 0.30 mg/dL Normal 0.20-1.00 [facility] Comment on above: Result Comment: For patients on eltrombopag therapy, use of Dimension [place] TBIL is not recommended. Performed By: #### L 500.4050, L100.0100, L500.4100, [id number] #### [facility] [address] [place], [id number] BUN/CRE 17.1 RATIO Normal 10-[address] [facility] Comment on above: Performed By: #### L 500.4050, L100.0100, L500.4100, [id number] #### [facility] [address] [place], [address] CA,Total 9.6 mg/dL Normal 8.5-10.[address] [facility] Comment on above: Performed By: #### L 500.4050, L100.0100, L500.4100, [id number] #### [facility] [address] [place], [address] Chloride [Moles/Vol] 104 mmol/L Normal 98-107 [facility] Comment on above: Performed By: #### L 500.4050, L100.0100, L500.4100, [id number] #### [facility] [address] [place], [address] CO2 [Moles/Vol] 30.0 mmol/L Normal 21.0-32.[address] [facility] Comment on above: Performed By: #### L 500.4050, L100.0100, L500.4100, [id number] #### [facility] [address] [place], [address] Creatinine [Mass/Vol] 0.94 mg/dL Normal 0.70-1.30 [facility] Comment on above: Result Comment: The validity of the calculated GFR GFRAA in patients over 70 years has not been determined. Clinical correlation is essential. Performed By: #### L 500.4050, L100.0100, L500.4100, [id number] #### [facility] [address] [place], [address] EST GFR - AA 125 mL/min Normal >[address] [facility] Comment on above: Result Comment: Afri can Citizen [place] GFR Calc Performed By: #### L 500.4050, L100.0100, L500.4100, [id number] #### [facility] [address] [place], [address] GAP 2 Low 5-[address] [facility] Comment on above: Performed By: #### L 500.4050, L100.0100, L500.4100, [id number] #### [facility] [address] [place], [address] GFR/1.73 sq M.predicted among non-blacks MDRD (S/P/Bld) [Vol rate/Area] 103 mL/min/{1.73_m2} Normal >[address] [facility] Comment on above: Result Comment: Non- GFR Calc Performed By: #### L 500.4050, L100.0100, L500.4100, [id number] #### [facility] [address] [place], [address] Globulin (S) [Mass/Vol] 4.0 g/dL Normal 2.2-4.2 [facility] Comment on above: Performed By: #### L 500.4050, L100.0100, L500.4100, [id number] #### [facility] [address] [place], [address] Glucose [Mass/Vol] 112 mg/dL High 74-106 [facility] Comment on above: Result Comment: Fast ing Glucose result from 100 to 125 mg/dL suggests IMPAIRED HOMEOSTASIS per A.D.A. criteria. Performed By: #### L 500.4050, L100.0100, L500.4100, [id number] #### [facility] [address] [place], [address] Potassium [Moles/Vol] 4.8 mmol/L Normal 3.5-5.1 [facility] Comment on above: Performed By: #### L 500.4050, L100.0100, L500.4100, [id number] #### [facility] [address] [place], [address] Sodium [Moles/Vol] 136 mmol/L Normal 136-145 [facility] Comment on above: Performed By: #### L 500.4050, L100.0100, L500.4100, [id number] #### [facility] [address] [place], [address] T PROT 8.5 g/dL High 6.4-8.[address] [facility] Comment on above: Performed By: #### L 500.4050, L100.0100, L500.4100, [id number] #### [facility] [address] [place], [address] Urea nitrogen [Mass/Vol] 16 mg/dL Normal 7-[address] [facility] Comment on above: Performed By: #### L 500.4050, L100.0100, L500.4100, [id number] #### [facility] [address] [place], [address] Lipid Profileon 10-11-2024 Cholesterol [Mass/Vol] 236 mg/dL High 200 [facility] Comment on above: Result Comment: <200 mg/dL Desirable 200-240 mg/dL Borderline >240 mg/dL High Risk Performed By: #### L 500.4050, L100.0100, L500.4100, [id number] #### [facility] [address] [place], [address] Cholesterol in HDL [Mass/Vol] 21 mg/dL Low [facility] Comment on above: Result Comment: The drugs N-Acetylcysteine and Metamizole may falsely depress this assay. Reference Range HDL <40 mg/dL Low HDL Cholesterol HDL >or= 60 mg/dL High HDL Cholesterol Performed By: #### L 500.4050, L100.0100, L500.4100, [id number] #### [facility] [address] [place], [address] Cholesterol in LDL [Mass/Vol] 137 mg/dL High 0-[address] [facility] Comment on above: Performed By: #### L 500.4050, L100.0100, L500.4100, [id number] #### [facility] [address] [place], [address] Cholesterol in VLDL [Mass/Vol] 78 mg/dL High 5-[address] [facility] Comment on above: Performed By: #### L 500.4050, L100.0100, L500.4100, [id number] #### [facility] [address] [place], [address] Triglyceride [Mass/Vol] 389 mg/dL High [facility] Comment on above: Result Comment: The drugs N-Acetylcysteine and Metamizole may falsely depress this assay. Serum Triglycerides Reference Interval Normal <150 mg/dL Borderline high 150 - 199 mg/dL High 200 - 499 mg/dL Very High > or = 500 mg/dL Performed By: #### L 500.4050, L100.0100, L500.4100, [id number] #### [facility] [address] [place], [address] Thyroid Stim Hormone (TSH)on 10-11-2024 TSH 1.340 uIU/mL Normal 0.358-3.[address] [facility] Comment on above: Performed By: #### L 500.4050, L100.0100, L500.4100, L501.9543 #### [facility] [address] [place], [address] CNOVon 12-10-2023 CNOV Office Visit ([facility]) ---- ROYCE FELDMAN ([id number]) 2000 M Date Time Provider Department 12/10/23 5:45 PM CHAPARRITA BRADY [facility] During your visit today, we recorded the following information about you: Temperature Pulse Respiration Blood pressure 97.4 degrees 85/minute 18/minute 149/94 Weight 127.9 kg Chaparrita Brady APRN.[employer] 12/10/2023 6:25 PM Signed Subjective HPI Nontoxic-appearing male presents urgent care chief complaint right fifth finger pain swelling. Patient states when he woke up this morning noticed some pain over his fifth digit. States he has been working in the [employer] recently for work thought he may have had a briar in his finger. Poked and squeezed at this area. Did get some pus out of it but does not know if the prior is still in his finger. Has noticed some swelling since then. Presents today for evaluation. Denied any trauma. No numbness no tingling. No decrease sensation. Overall feels well. Denies any fever body aches chills productive cough chest pain shortness of breath pleuritic pain hemoptysis nausea vomiting abdominal pain change in bowel or bladder habits. Past medical history prescription medication use and allergies reviewed. .Patient presents with: Finger Pain: R hand fifth finger x this AM, red and swollen History reviewed. No pertinent past medical history. History reviewed. No pertinent surgical history. ALLERGIES Penicillins MEDICATIONS atorvastatin (LIPITOR) 10 mg tablet Take 10 mg by mouth daily at bedtime. levothyroxine (SYNTHROID) 50 mcg tablet Take 1 tablet by mouth every afternoon. lisinopril (ZESTRIL) 20 mg tablet TAKE 1 TABLET (20 MG) ORALLY DAILY DULoxetine (CYMBALTA) 30 mg capsule (Patient not taking: Reported on 12/10/2023) meloxicam (MOBIC) 7.5 mg tablet Take 1 tablet by mouth once daily. (Patient not taking: Reported on 12/10/2023) History reviewed. No pertinent family history. Social History Tobacco Use Smoking status: Never Smokeless tobacco: Never BP 149/94 Pulse 85 Temp 36.3 ?C (97.4 ?F) Resp 18 Wt 127.9 kg (282 lb) SpO2 100% BMI 42.25 kg/m? Review of Systems Constitutional: Negative for chills, fever and malaise/fatigue. HENT: Negative for congestion, ear discharge, ear pain, sinus pain and sore throat. Eyes: Negative for blurred vision, pain, discharge and redness. Respiratory: Negative for cough, hemoptysis, sputum production, shortness of breath, wheezing and stridor. Cardiovascular: Negative for chest pain. Gastrointestinal: Negative for abdominal pain, diarrhea, nausea and vomiting. Musculoskeletal: Positive for joint pain. Negative for myalgias. Skin: Negative for itching and rash. Neurological: Negative for dizziness and headaches. Objective Physical Exam Constitutional: General: He is not in acute distress. Appearance: He is not toxic-appearing. HENT: Head: Normocephalic. Nose: Nose normal. Eyes: Pupils: Pupils are equal, round, and reactive to light. Cardiovascular: Rate and Rhythm: Normal rate. Pulmonary: Effort: Pulmonary effort is normal. No respiratory distress. Musculoskeletal: Hands: Cervical back: Normal range of motion. Comments: Pain with palpation over fifth digit right hand. Mild swelling noted. No real redness. Some discomfort with palpation over PIP joint. Area of broken skin noted over PIP joint where it appears patient did try to remove a foreign body at home. Skin: General: Skin is warm and dry. Neurological: General: No focal deficit present. Mental Status: He is alert. ASSESSMENT/PLAN: 1. Finger joint swelling, right - ICD9: 719.04, ICD10: M25.441 Diagnosis finger swelling of right hand. This does not appear to be gout. No evidence of septic joint. Area is mildly swollen no significant redness. Neurovascular was intact full range of motion no weakness is noted on examination. Suspicious of possible foreign body still lodged in hand. On examination palpation I cannot appreciate anything. X-ray was offered declined x-ray at this point. Will be placed on mupirocin and doxycycline. Follow-up with PCP 1 to 2 days reevaluation. Red flags for prompt reevaluation discussed. Patient was educated on supportive therapies. Patient will follow up with primary care provider as needed. Patient was instructed to immediately proceed to emergency room for any new, worsening, or symptoms lasting longer than anticipated. The patient's clinical presentation is otherwise unremarkable at this time. Based on exam and clinical finding, the patient is stable for discharge. Plan of care was discussed with patient. Patient verbalizes understanding and agrees to plan of care. This note was generated using [employer] software. It may contain errors in wording, punctuation, or spelling. Chaparrita Brady, V BELT BUILDER.BILL CUTTER Allergies As of Date: 12/10/2023 Noted Allergy Reaction (more content not included)... Normal [facility] Absolute lymphocyte countOrd ered By: Janice Powell on 08-07-2023 Lymphocytes Auto (Unsp spec) [#/Vol] 3.04 10*3/uL 0.83-4.[address] [facility] Basophil percentageOrdered B y: Janice Powell on 08-07-2023 Basophils/100 WBC (Bld) 0.6 % 0-1 [facility] Bilirubin [Mass/Vol] 0.30 mg/dL 0.20-1.00 [facility] Comment on above: For patients on eltr ombopag therapy, use of Dimension [place] TBIL is not recommended. Chloride [Moles/Vol] 109 mmol/L 98-107 [facility] Cholesterol [Mass/Vol] 262 mg/dL <200 [facility] Comment on above: <200 mg/dL Desirable 200-240 mg/dL Borderline >240 mg/dL High Risk Eosinophils/100 WBC (Bld) 2.9 % 0-5 [facility] Glucose [Mass/Vol] 90 mg/dL 74-106 [facility] Neutrophils (Bld) [#/Vol] 4.1 10*3/uL 2.0-7.[address] [facility] Neutrophils/100 WBC (Bld) 51.5 % 47-[address] [facility] Potassium [Moles/Vol] 3.7 mmol/L 3.5-5.1 [facility] Protein [Mass/Vol] 7.9 g/dL 6.4-8.2 [facility] Sodium [Moles/Vol] 140 mmol/L 136-145 [facility] Triglyceride [Mass/Vol] 322 mg/dL <199 [facility] Comment on above: The drugs N-Acetylcy steine and Metamizole may falsely depress this assay.Serum Triglycerides Reference Interval Normal <150 mg/dL Borderline high 150 - 199 mg/dL High 200 - 499 mg/dL Very High > or = 500 mg/dL WBC (Bld) [#/Vol] 8.0 10*3/uL 4.4-11.0 [facility] Blood erythrocytes count (nu mber/volume)Ordered By: Janice Powell on 08-07-2023 RBC (Bld) [#/Vol] 4.91 10*6/uL 4.6-6.2 [facility] Blood hemoglobin measurement (mass/volume)Ordered By: Janice Powell on 08-07-2023 Hemoglobin (Bld) [Mass/Vol] 14.3 g/dL 13.0-16.[address] [facility] Blood lymphocytes/100 leukoc ytesOrdered By: Janice Powell on 08-07-2023 Lymphocytes/100 WBC (Bld) 37.8 % 19-[address] [facility] Blood monocytes/100 leukocyt esOrdered By: Janice Powell on 08-07-2023 Monocytes/100 WBC (Bld) 6.8 % 0-10 [facility] Blood platelet mean volumeOr dered By: Janice Powell on 08-07-2023 Platelet mean volume (Bld) [Entitic vol] 11.2 fL 6.2-12.[address] [facility] Determination of erythrocyte mean corpuscular volume (MCV)Ordered By: Janice Powell on 08-07-2023 MCV (RBC) [Entitic vol] 87.8 fL 80-94 [facility] Hematocrit Auto (Bld) [Volum e fraction]Ordered By: Janice Powell on 08-07-2023 Hematocrit (Bld) [Volume fraction] 43.1 % 40-[address] [facility] Laboratory - Chemistry and C hemistry - challengeOrdered By: Janice Powell on 08-07-2023 ALP [Catalytic activity/Vol] 65 U/L 45-[address] [facility] ALT [Catalytic activity/Vol] 67 U/L 16-[address] [facility] CO2 [Moles/Vol] 25.0 mmol/L 21.0-32.[address] [facility] Globulin (S) [Mass/Vol] 3.7 g/dL 2.2-4.2 [facility] Urea nitrogen/Creatinine [Mass ratio] 19.0 mg/mg 10-[address] [facility] Laboratory - Hematology and Cell countsOrdered By: Janice Powell on 08-07-2023 Erythrocyte distribution width (RBC) [Entitic vol] 38.8 fL 35.1-43.[address] [facility] Erythrocyte distribution width (RBC) [Ratio] 12.0 % 11.6-14.[address] [facility] Immature granulocytes/100 WBC (Bld) 0.400 % 0.0-0.[address] [facility] Comment on above: IG% - Immature Granu locytes (promyelocytes, myelocytes and metamyelocytes) > 1% indicates that a LEFT SHIFT is Present. MCH (RBC) [Entitic mass] 29.1 pg 27.0-32.[address] [facility] Nucleated RBC/100 WBC (Bld) [Ratio] 0 % 0-[address] [facility] MCHC Auto (RBC) [Mass/Vol]Or dered By: Janice Powell on 08-07-2023 MCHC (RBC) [Mass/Vol] 33.2 g/dL 32-36 [facility] No Panel InformationOrdered By: Janice Powell on 08-07-2023 Estimated GFR (MDRD) Amer 124 mL/min >[address] [facility] Comment on above: GFR Calc Estimated GFR (MDRD) Non-Af Amer 103 mL/min >[address] [facility] Comment on above: Non- GFR Calc Thyroid Stimulating Hormone (TSH) 2.32 uIU/mL 0.358-3.[address] [facility] Platelets bldOrdered By: Duarte Powell on 08-07-2023 Platelets (Bld) [#/Vol] 266 10*3/uL 150-[address] [facility] Serum or plasma albumin ketty urement (mass/volume)Ordered By: Janice Powell on 08-07-2023 Albumin [Mass/Vol] 4.2 g/dL 3.2-5.0 [facility] Serum or plasma albumin/glob ulin mass ratioOrdered By: Janice Powell on 08-07-2023 Albumin/Globulin [Mass ratio] 1.1 {ratio} 0.9-2.[address] [facility] Serum or plasma calcium ketty urement (mass/volume)Ordered By: Janice Powell on 08-07-2023 Calcium [Mass/Vol] 9.1 mg/dL 8.5-10.1 [facility] Serum or plasma cholesterol in HDL measurement (mass/volume)Ordered By: Janice Powell on 08-07-2023 Cholesterol in HDL [Mass/Vol] 25 mg/dL >[address] [facility] Comment on above: The drugs N-Acetylcy steine and Metamizole may falsely depress this assay. Reference Range HDL <40 mg/dL Low HDL Cholesterol HDL >or= 60 mg/dL High HDL Cholesterol Serum or plasma cholesterol in VLDL measurement (mass/volume)Ordered By: Janice Powell on 08-07-2023 Cholesterol in VLDL [Mass/Vol] 64 mg/dL 5-[address] [facility] Serum or plasma creatinine m easurement (mass/volume)Ordered By: Janice Powell on 08-07-2023 Creatinine [Mass/Vol] 0.95 mg/dL 0.70-1.30 [facility] Comment on above: The validity of the calculated GFR & GFRAA in patients over 70 years has not been determined. Clinical correlation is essential. Serum or plasma low density lipoprotein (LDL) cholesterol measurement (mass/volume)Ordered By: Janice Powell on 08-07-2023 Cholesterol in LDL [Mass/Vol] 173 mg/dL 0-[address] [facility] Serum or plasma urea nitroge n measurement (mass/volume)Ordered By: Janice Powell on 08-07-2023 Urea nitrogen [Mass/Vol] 18 mg/dL 7-[address] [facility] Thin prep Papanicolaou smear with manual screeningOrdered By: Janice Powell on 08-07-2023 Thin prep Papanicolaou smear with manual screening 27 U/L 15-[address] [facility] Thin prep Papanicolaou smear with manual screening 6 5-[address] [facility] PROGRESSon 06-25-2018 Protein mass conc HNO ID: [id number]: Luz (Ct) ROSALVA Pickeringervice: (none)Author Type: Clinical TechnicianType: Progress NotesFiled: 06/25/2018 10:52 AMNote Text:NAME:Royce Sprague: June 25[birth year] 2018CCF#: [id number] Extremity X-Ray(s): Knee, AP / Lat / Tunne / Merchant Right and Wt.Bearing COMPLETEDTECH ID SIGN: [facility] XR KNEE 4V AP/PA BOTH+LAT/ME R RTon 06-25-2018 XR KNEE 4V AP/PA BOTH+LAT/TARI RT * * *Final Report* * *DATE OF EXAM: Jun 25 2018 10:50AM MARIA ESTHER [id number] - XR KNEE 4V AP/PA BOTH+LAT/TARI RT / REASON: [id number], unspecified * * * * Physician Interpretation * * * * PROCEDURE: Right kneeINDICATION: Pain, unspecified .TECHNIQUE: XR KNEE 4V AP/PA BOTH+LAT/TARI RTCOMPARISON: NoneFINDINGS:Joint spaces are maintained. No fracture or joint effusion. Soft tissues are unremarkable.IMPRES HIREN: NegativeTranscripti onist: PSCB Transcribe Date/Time: Jun 25 2018 10:56ADictated by : AKUA BROWN MDThis examination was interpreted and the report reviewed and electronically signed by: AKUA BROWN MD on Jun 25 2018 10:57AM [id number] [facility] Vital Signs Date Time Vital Sign Value Performing Clinician Facility 12-10-2023 17:51-0500 Body temperature 97.39 [degF] Chaparrita Brady APRN.BILL CUTTER Work Phone: [facility] 12-10-2023 17:51-0500 Body weight 127.91 [facility].BI[employer] CUTTER Work Phone: [facility] 12-10-2023 17:51-0500 Diastolic blood pressure 94 mm[Hg] [facility].BILL CUTTER Work Phone: [facility] 12-10-2023 17:51-0500 Heart rate 85 /min [facility].BILL CUTTER Work Phone: [facility] 12-10-2023 17:51-0500 Respiratory rate 18 /min [facility].BILL CUTTER Work Phone: [facility] 12-10-2023 17:51-0500 SaO2% (BldA) [Mass fraction] 100 % [facility].BILL CUTTER Work Phone: [facility] 12-10-2023 17:51-0500 Systolic blood pressure 149 mm[Hg] [facility].BILL CUTTER Work Phone: [facility] 08-07-2023 18:56-0400 Body height 177.8 cm [facility] 08-07-2023 18:56-0400 Body mass index (BMI) [Ratio] 38.7 kg/m2 [facility] 08-07-2023 18:56-0400 Body temperature 97.5 [degF] [facility] 08-07-2023 18:56-0400 Body weight 122.46 kg [facility] 08-07-2023 18:56-0400 Diastolic blood pressure 80 mm[Hg] [facility] 08-07-2023 18:56-0400 Heart rate 97 /min [facility] 08-07-2023 18:56-0400 Respiratory rate 18 /min [facility] 08-07-2023 18:56-0400 SaO2% (BldA) [Mass fraction] 98 % [facility] 08-07-2023 18:56-0400 Systolic blood pressure 122 mm[Hg] [facility] Encounters Encounter Date Encounter Type Care Provider Facility Start: 10-11-2024 End: 10-11-2024 ambulatory Janice Powell NP Facility:[facility] Start: 12-10-2023 End: 12-10-2023 ambulatory SANIYA ROTH Facility:[facility] Start: 12-10-2023 End: 12-10-2023 Office outpatient new 20 minutes Chaparrita Jessiekamilawong LINN.BILL CUTTER Work Phone: [facility] Comment on above: Finger joint swellin g, right (Primary Dx) Start: 08-07-2023 End: 08-07-[address] [facility] Work Phone: Start: 08-07-2023 End: 08-07-2023 Patient encounter procedure [facility]-Laboratory, Specimen Work Phone: Start: 06-25-2018 End: 06-25-[address] [facility] Plan of Treatment Date Care Activity Detail Author Start: 10-26-2023 Depression Assessment Depression Ass essment [facility] Start: 06-26-2023 Influenza vaccination Influenza Vacc ine (#1) [facility] Start: 2016 Hepatitis C screening Hepatitis C Sc misa [facility] Start: 2016 HIV screening HIV Screening [facility] Start: 2012 Peds To Adult Transi tion Annual Assessment Peds To Adult Transition Annual Assessment [facility] Start: 2010 Peds To Adult Transi tion Initial Discussion Peds To Adult Transition Initial Discussion [facility] Start: 2009 Urine microalbumin profile DTa P,Tdap,Td Vaccine (6 - Tdap) [facility] Start: 2007 HPV Vaccine (1 - Mal e 2-dose series) HPV Vaccine (1 - Male 2-dose series) [facility] Start: 1998 Covid-19 Vaccine (#1) Covid-19 Vacci ne (#1) [facility] Start: 1998 Hepatitis B Vaccine (1 of 3 - 3-dose series) Hepatitis B Vaccine (1 of 3 - 3-dose series) [facility] Payers Date Payer Category Payer Self-pay [id number] 2023 Unknown [id number] 2023 Unknown MMO MMO [employer] PPO [id number] 2023-Present [phone] [address] [place] [address] PPO [id number] Unknown ETELVINA [id number] Unknown MED MUTUAL TPA [id number] Unknown [id number] Social History Date Type Detail Facility Start: 10-08-2022 [facility] Start: 2000 Sex Assigned At Male [facility] Start: 12-10-2023 [facility] Start: 12-10-2023 Tobacco use and exposure Smokeless tobacco non-user [facility] Start: 10-01-2020 End: 12-10-2023 History of Social function [facility] Start: 10-01-2020 End: 12-10-2023 Tobacco use panel [facility] National Score (1-100), lower number is lower risk Not on file [facility] Start: 1998 Sex Assigned At Not on file [facility] Progress note 12-10-2023 Note Date & Type Note Facility 12-10-2023 Note HNO ID: [id number] Author: CHAPARRITA BRADY APRN.BILL CUTTER Service: ? Author Type: Nurse Practitioner Type: Progress Notes Filed: 12/10/2023 18:25 Note Text: Subjective HPI Nontoxic-appearing male presents urgent care chief complaint right fifth finger pain swelling. Patient states when he woke up this morning noticed some pain over his fifth digit. States he has been working in the [employer] recently for work thought he may have had a briar in his finger. Poked and squeezed at this area. Did get some pus out of it but does not know if the prior is still in his finger. Has noticed some swelling since then. Presents today for evaluation. Denied any trauma. No numbness no tingling. No decrease sensation. Overall feels well. Denies any fever body aches chills productive cough chest pain shortness of breath pleuritic pain hemoptysis nausea vomiting abdominal pain change in bowel or bladder habits. Past medical history prescription medication use and allergies reviewed. .Patient presents with: Finger Pain: R hand fifth finger x this AM, red and swollen History reviewed. No pertinent past medical history. History reviewed. No pertinent surgical history. ALLERGIES Penicillins MEDICATIONS atorvastatin (LIPITOR) 10 mg tablet Take 10 mg by mouth daily at bedtime. levothyroxine (SYNTHROID) 50 mcg tablet Take 1 tablet by mouth every afternoon. lisinopril (ZESTRIL) 20 mg tablet TAKE 1 TABLET (20 MG) ORALLY DAILY DULoxetine (CYMBALTA) 30 mg capsule (Patient not taking: Reported on 12/10/2023) meloxicam (MOBIC) 7.5 mg tablet Take 1 tablet by mouth once daily. (Patient not taking: Reported on 12/10/2023) History reviewed. No pertinent family history. Social History Tobacco Use Smoking status: Never Smokeless tobacco: Never BP 149/94 Pulse 85 Temp 36.3 ?C (97.4 ?F) Resp 18 Wt 127.9 kg (282 lb) SpO2 100% BMI 42.25 kg/m? Review of Systems Constitutional: Negative for chills, fever and malaise/fatigue. HENT: Negative for congestion, ear discharge, ear pain, sinus pain and sore throat. Eyes: Negative for blurred vision, pain, discharge and redness. Respiratory: Negative for cough, hemoptysis, sputum production, shortness of breath, wheezing and stridor. Cardiovascular: Negative for chest pain. Gastrointestinal: Negative for abdominal pain, diarrhea, nausea and vomiting. Musculoskeletal: Positive for joint pain. Negative for myalgias. Skin: Negative for itching and rash. Neurological: Negative for dizziness and headaches. Objective Physical Exam Constitutional: General: He is not in acute distress. Appearance: He is not toxic-appearing. HENT: Head: Normocephalic. Nose: Nose normal. Eyes: Pupils: Pupils are equal, round, and reactive to light. Cardiovascular: Rate and Rhythm: Normal rate. Pulmonary: Effort: Pulmonary effort is normal. No respiratory distress. Musculoskeletal: Hands: Cervical back: Normal range of motion. Comments: Pain with palpation over fifth digit right hand. Mild swelling noted. No real redness. Some discomfort with palpation over PIP joint. Area of broken skin noted over PIP joint where it appears patient did try to remove a foreign body at home. Skin: General: Skin is warm and dry. Neurological: General: No focal deficit present. Mental Status: He is alert. ASSESSMENT/PLAN: 1. Finger joint swelling, right - ICD9: 719.04, ICD10: M25.441 Diagnosis finger swelling of right hand. This does not appear to be gout. No evidence of septic joint. Area is mildly swollen no significant redness. Neurovascular was intact full range of motion no weakness is noted on examination. Suspicious of possible foreign body still lodged in hand. On examination palpation I cannot appreciate anything. X-ray was offered declined x-ray at this point. Will be placed on mupirocin and doxycycline. Follow-up with PCP 1 to 2 days reevaluation. Red flags for prompt reevaluation discussed. Patient was educated on supportive therapies. Patient will follow up with primary care provider as needed. Patient was instructed to immediately proceed to emergency room for any new, worsening, or symptoms lasting longer than anticipated. The patient's clinical presentation is otherwise unremarkable at this time. Based on exam and clinical finding, the patient is stable for discharge. Plan of care was discussed with patient. Patient verbalizes understanding and agrees to plan of care. This note was generated using [employer] software. It may contain errors in wording, punctuation, or spelling. Chaparrita Brady APRN.YESENIA [facility] History of Present illness Narrative 12-10-2023 Chaparrita Brady APRN.YESENIA - 12/10/2023 5:56 PM EST Note Date & Type Note Facility 12-10-2023 History of Presen t illness Narrative Images from the original note were not included. Subjective HPI Nontoxic-appearing male presents urgent care chief complaint right fifth finger pain swelling. Patient states when he woke up this morning noticed some pain over his fifth digit. States he has been working in the [employer] recently for work thought he may have had a briar in his finger. Poked and squeezed at this area. Did get some pus out of it but does not know if the prior is still in his finger. Has noticed some swelling since then. Presents today for evaluation. Denied any trauma. No numbness no tingling. No decrease sensation. Overall feels well. Denies any fever body aches chills productive cough chest pain shortness of breath pleuritic pain hemoptysis nausea vomiting abdominal pain change in bowel or bladder habits. Past medical history prescription medication use and allergies reviewed. .Patient presents with: Finger Pain: R hand fifth finger x this AM, red and swollen History reviewed. No pertinent past medical history. History reviewed. No pertinent surgical history. ALLERGIES Penicillins MEDICATIONS atorvastatin (LIPITOR) 10 mg tablet Take 10 mg by mouth daily at bedtime. levothyroxine (SYNTHROID) 50 mcg tablet Take 1 tablet by mouth every afternoon. lisinopril (ZESTRIL) 20 mg tablet TAKE 1 TABLET (20 MG) ORALLY DAILY DULoxetine (CYMBALTA) 30 mg capsule (Patient not taking: Reported on 12/10/2023) meloxicam (MOBIC) 7.5 mg tablet Take 1 tablet by mouth once daily. (Patient not taking: Reported on 12/10/2023) History reviewed. No pertinent family history. Social History Tobacco Use Smoking status: Never Smokeless tobacco: Never BP 149/94 Pulse 85 Temp 36.3 C (97.4 F) Resp 18 Wt 127.9 kg (282 lb) SpO2 100% BMI 42.25 kg/m Review of Systems Constitutional: Negative for chills, fever and malaise/fatigue. HENT: Negative for congestion, ear discharge, ear pain, sinus pain and sore throat. Eyes: Negative for blurred vision, pain, discharge and redness. Respiratory: Negative for cough, hemoptysis, sputum production, shortness of breath, wheezing and stridor. Cardiovascular: Negative for chest pain. Gastrointestinal: Negative for abdominal pain, diarrhea, nausea and vomiting. Musculoskeletal: Positive for joint pain. Negative for myalgias. Skin: Negative for itching and rash. Neurological: Negative for dizziness and headaches. Objective Physical Exam Constitutional: General: He is not in acute distress. Appearance: He is not toxic-appearing. HENT: Head: Normocephalic. Nose: Nose normal. Eyes: Pupils: Pupils are equal, round, and reactive to light. Cardiovascular: Rate and Rhythm: Normal rate. Pulmonary: Effort: Pulmonary effort is normal. No respiratory distress. Musculoskeletal: Hands: Cervical back: Normal range of motion. Comments: Pain with palpation over fifth digit right hand. Mild swelling noted. No real redness. Some discomfort with palpation over PIP joint. Area of broken skin noted over PIP joint where it appears patient did try to remove a foreign body at home. Skin: General: Skin is warm and dry. Neurological: General: No focal deficit present. Mental Status: He is alert. ASSESSMENT/PLAN: 1. Finger joint swelling, right - ICD9: 719.04, ICD10: M25.441 Diagnosis finger swelling of right hand. This does not appear to be gout. No evidence of septic joint. Area is mildly swollen no significant redness. Neurovascular was intact full range of motion no weakness is noted on examination. Suspicious of possible foreign body still lodged in hand. On examination palpation I cannot appreciate anything. X-ray was offered declined x-ray at this point. Will be placed on mupirocin and doxycycline. Follow-up with PCP 1 to 2 days reevaluation. Red flags for prompt reevaluation discussed. Patient was educated on supportive therapies. Patient will follow up with primary care provider as needed. Patient was instructed to immediately proceed to emergency room for any new, worsening, or symptoms lasting longer than anticipated. The patient's clinical presentation is otherwise unremarkable at this time. Based on exam and clinical finding, the patient is stable for discharge. Plan of care was discussed with patient. Patient verbalizes understanding and agrees to plan of care. This note was generated using [employer] software. It may contain errors in wording, punctuation, or spelling. Chaparrita Brady APRN.YESENIA documented in this encounter [facility] Evaluation note Note Date & Type Note Facility Evaluation note Diagnosis Onset Date Hypothyroid acute Hypertension [facility] Work Phone: Evaluation note Note Date & Type Note Facility Evaluation note Diagnosis Finger joint swelling, right- Primary documented in this encounter [facility] Summary Purpose Family History No Family History Records Found Relationship Condition Age at Onset Recorded Date/T jessica Not Specified Cardiac disease Unknown Advance Directives No Advanced Directives Records FoundNo Advanced Directives Records FoundNo Advanced Directives Records Found Chief Complaint and Reason for Visit Chief Complaint medication refills Reason for Visit Hypothyroid Hypertension Additional Source Comments (unrecognized sect ion and content) No Status Records FoundNo Status Records FoundNo Status Records Found INFORMATION SOURCE (unrecogn ized section and content) DATE CREATED AUTHOR 06/29/2018 [facility] DATE CREATED AUTHOR AUTHOR'S ORGANIZ ATION 12/12/2023 [facility] DATE CREATED AUTHOR AUTHOR'S ORGANIZ ATION 11/14/2024 [facility] Care Teams (unrecognized sec tion and content) Team Status: Active Member Role Status Dates Janice Powell SHEET METAL MECHANIC, SHEET METAL MECHANIC-C Family Provider Active Janice Powell SHEET METAL MECHANIC, SHEET METAL MECHANIC-C Primary Care Provider Active Team Status: Inactive Member Role Status Dates Janice Powell SHEET METAL MECHANIC, SHEET METAL MECHANIC-C Primary Care Pr ovider, Attending Provider, Referring Provider Active Team Status: Inactive Member Role Status Dates Janice Powell SHEET METAL MECHANIC, SHEET METAL MECHANIC-C Primary Care Provider, Attend ing Provider Active Radio Recorder Relationship Specialty Start Date End Date Saniya Roth MD PCP - General Family Medicine 11/08/10 Goals (unrecognized section and content) Goals may be documented in a n alternate section Source Comments (unrecognize d section and content) In the event this informatio n is protected by the Federal Confidentiality of Alcohol and Drug Abuse Patient Records regulations: The Federal rules restrict any use of the information to criminally investigate or prosecute any alcohol or drug abuse patient.[facility] Reason for Visit (unrecogniz ed section and content) Reason Comments Finger Pain R hand fifth finger x this AM, red and swollen FOR RECORDS PERTAINING TO PATIENTS WHO ARE OR HAVE BEEN ENROLLED IN A CHEMICAL DEPENDENCY/SUBSTANCEABUSE PROGRAM, SOME INFORMATION MAY BE OMITTED. This clinical summary was aggregated from multiple sources. Caution should be exercised in using it in the provision of clinical care. This summary normalizes information from multiple sources, and as a consequence, information in this document may materially change the coding, format and clinical context of patient data. In addition, data may be omitted in some cases. CLINICAL DECISIONS SHOULD BE BASED ON THE PRIMARY CLINICAL RECORDS. [facility] [employer] [facility]. provides no warranty or guarantee of the accuracy or completeness of information in this document.
[2025-07-18 21:58] LABS: Hematocrit 45.8 % (40-54); Hemoglobin 15.3 g/dL (13.0-16.5); Immature Granulocytes Count 0.010 X10^3/uL (0.0-0.0); Mean Corp Hgb Conc 33.4 g/dL (32-36); Mean Corpuscular Volume 87.6 fL (80-94); Mean Platelet Vol. 11.7 fl (6.2-12.0); NRBC Flagged by Analyzer 0 % (0-5); Platelet Count 268 K/mm3 (150-450); RBC Distribution Width CV 12.2 % (11.6-14.6); RBC Distribution Width SD 39.0 fl (35.1-43.9); Red Blood Count 5.23 M/mm3 (4.6-6.2); White Blood Count 7.0 K/mm3 (4.4-11.0)
[2025-07-18 22:30] LABS: AST(SGOT) 31 U/L (<=37); Alanine Aminotransfer ALT/SGPT 44 U/L (<=46); Albumin, Serum 4.8 g/dL (3.5-5.0); Alkaline Phosphatase 65 U/L (40-129); Anion Gap 13 (5-15); BUN 14 mg/dL (4-19); BUN/Creat Ratio 15.1 RATIO (10-20); Calcium,Total 10.1 mg/dL (7.6-11.0); Carbon Dioxide 24.1 mmol/L (21.0-32.0); Chloride 102 mmol/L (98-108); Cholesterol 288 mg/dL (<=200); Globulin 3.2 g/dL (2.2-4.2); Glucose 91 mg/dL (70-99); Low Density Lipoprotein Calc. 194 mg/dL; Potassium 4.7 mmol/L (3.3-5.1); Triglycerides 356 mg/dL; Very Low Density Lipoprotein 71 mg/dL (5-40); cholesterol:hdl ratio screen 12.47
== END | disposition home or self-care (01) ==
PROVIDERS: PCP Nurse Practitioner; Visit Provider Nurse Practitioner
DX: F41.9 Anxiety disorder, unspecified (principal); E03.9 Hypothyroidism, unspecified; I10 Essential (primary) hypertension
CPT/HCPCS: 80053; 80061; 84443; 85025

== ENCOUNTER → 2025-10-11 | Outpatient (CLI) | payer OTHER, SELFPAY ==
--- OUTSIDE RECORDS SUMMARY | 2025-10-11 21:42 | XMS RPT_ITS | CCD ---
Author Organization [facility] Care Team Providers Care [employer] Driver Name Role Phone Latisha BRAMBILA, Saniya Mehta Primary Care Provider Andre BICYCLE SUBASSEMBLER-C, Janice Primary Care Physician Andre BICYCLE SUBASSEMBLER-C, Janice Attending Physician Janice Powell NP Referring Unavailable Andre BICYCLE SUBASSEMBLER, Janice Attending Unavailable Andre BICYCLE SUBASSEMBLER, Janice Primary Care Unavailable Andre BICYCLE SUBASSEMBLER, Janice Attending Unavailable Andre BICYCLE SUBASSEMBLER, Janice Primary Care Unavailable Allergies Allergy Classification Reported Allergen(s) Allergy Type Date of Onset Reaction(s) Facility (3 sources) Penicillins; Translations: [PENICILLINS] Allergy to substance 06-22-2018 [facility] (1 source) Penicillins Drug Allergy 06-25-2018 [facility] (1 source) Penicillins Drug allergy (disorder) 06-22-2018 [facility] Repository Medications Current Medications Medication Drug Class(es) Dates Sig (Normalized) Sig (Original) atorvastatin 40 mg oral tablet (6 sources) HMG-CoA Reductase Inhibitor Start: 11-10-2024 take 1 tablet by mouth once daily Start: 10-11-2024 End: 07-18-2025 take 1 tablet by mouth at bedtime Atorvastatin 10 mg tablet Discontinued 10 mg PO AT BEDTIME 90 3 October 11, 2024 4:51pm July 18, 2025 6:22pm Start: 08-10-2023 End: 10-11-2024 take 1 tablet by mouth once daily at bedtime atorvastatin (LIPITOR) 10 mg tablet Take 10 mg by mouth daily at bedtime. 0 11/05/2023 Active Comment on above: Take 10 mg by mouth daily at bedtime. doxycycline hyclate 100 mg oral tablet (3 sources) Tetracycline-class Drug Start: 12-10-2023 End: 02-20-2024 take 1 tablet by mouth twice daily doxycycline (VIBRA-TABS) 100 mg tablet Take 1 tablet by mouth two times a day for 5 days. 10 tablet 0 12/10/2023 12/15/2023 Active Start: 09-09-2021 End: 09-16-2021 take 1 capsule by mouth twice daily Doxycycline Hyclate 100 mg capsule Discontinued 100 mg PO TWICE A DAY 14 7 0 September 09, 2021 1:00am September 15, 2021 1:00am September 16, 2021 1:01am Acute sinusitis, unspecified Comment on above: Take 1 tablet by rossy two times a day for 5 days. [...] Drug Class(es) Dates Sig (Normalized) Sig (Original) [id number] 200 actuat albuterol 0.09 mg/actuat metered dose inhaler (1 source) beta2-Adrenergic Agonist Start: 10-11-2024 End: 07-18-2025 Albuterol Sulfate 90 mcg/actuation HFA aerosol inhaler Discontinued 2 NMA INHALATION EVERY 4-6 HOURS as needed for shortness of breath or wheezing 8.5 3 October 11, 2024 1:00am July 18, 2025 6:22pm azithromycin 250 mg oral tablet (3 sources) Macrolide Antimicrobial Start: 10-11-2024 End: 10-16-2024 take 2 tablets by mouth once daily, then take 1 tablet by mouth once daily at mealtime Azithromycin 250 mg tablet Discontinued 250 mg PO daily 6 5 0 October 11, 2024 1:00am October 15, 2024 1:00am October 16, 2024 1:10am 2 po qd for 1 day then 1 po qd for 4 days with food or after eating Start: 08-02-2019 End: 08-07-2019 take 2 tablets by mouth once daily, then take 1 tablet by mouth once daily at mealtime Azithromycin 250 mg tablet Discontinued 250 mg PO daily 6 5 0 August 02, 2019 12:00am August 06, 2019 12:00am August 07, 2019 12:09am Major depressive disorder, single episode, unspecified 2 po qd for 1 day then 1 po qd for 4 days with food or after eating benzonatate 200 mg oral capsule (2 sources) Non-narcotic Antitussive Start: 11-18-2018 End: 06-01-2019 take 1 capsule by mouth three times daily as needed for cough Benzonatate 200 mg capsule Discontinued 200 mg PO THREE TIMES A DAY as needed for cough 60 3 November 18, 2018 1:00am June 01, 2019 5:54pm cefdinir 300 mg oral capsule (2 sources) Cephalosporin Antibacterial Start: 03-10-2025 End: 07-19-2025 take 1 capsule by mouth twice daily Cefdinir 300 mg capsule Discontinued 300 mg PO TWICE A DAY 20 0 April 03, 2025 1:22pm July 19, 2025 7:44am cefuroxime 500 mg oral tablet (6 sources) Cephalosporin Antibacterial Start: 10-08-2022 End: 08-07-2023 take 1 tablet by mouth twice daily Cefuroxime Axetil 500 mg tablet Discontinued 500 mg PO TWICE A DAY 20 0 October 08, 2022 6:19pm August 07, 2023 6:59pm Start: 06-01-2019 End: 08-02-2019 take 1 tablet by mouth twice daily Cefuroxime Axetil 500 mg tablet Discontinued 500 mg PO TWICE A DAY 20 0 June 01, 2019 12:00am August 02, 2019 4:19pm Start: 11-18-2018 End: 11-28-2018 take 1 tablet by mouth every twelve hours Cefuroxime Axetil 500 mg tablet Discontinued 500 mg PO Q12H 20 10 November 18, 2018 1:00am November 27, 2018 1:00am November 28, 2018 1:09am cetirizine hydrochloride 10 mg oral capsule (2 sources) Histamine-1 Receptor Antagonist Start: 06-22-2018 End: 08-02-2019 take 1 capsule by mouth once daily Cetirizine (Zyrtec) 10 mg capsule Discontinued 10 mg PO DAILY June 22, 2018 12:00am August 02, 2019 4:19pm ciprofloxacin 500 mg oral tablet (2 sources) Quinolone Antimicrobial Start: 12-05-2019 End: 12-21-2020 take 1 tablet by mouth twice daily Ciprofloxacin Hcl (Cipro) 500 mg tablet Discontinued 500 mg PO TWICE A DAY 20 December 05, 2019 1:00am December 21, 2020 4:02pm Chronic maxillary sinusitis DULoxetine 60 mg delayed release oral capsule (11 sources) Serotonin and Norepinephrine Reuptake Inhibitor Start: 07-13-2018 End: 06-26-2022 take 1 capsule by mouth once daily Duloxetine 60 mg capsule,delayed release(DR/EC) Discontinued 60 mg PO DAILY 90 August 18, 2018 2:55pm October 03, 2019 6:51pm Start: 06-22-2018 End: 07-13-2018 take 1 capsule by mouth once daily Duloxetine 30 mg capsule,delayed release(DR/EC) Discontinued 30 mg PO daily 30 June 22, 2018 12:00am July 13, 2018 6:16pm hydroxychloroquine sulfate 200 mg oral tablet (2 sources) Antimalarial, Antirheumatic Agent Start: 10-03-2019 End: 12-21-2020 take 1 tablet by mouth twice daily Hydroxychloroquine (Plaquenil) 200 mg tablet Discontinued 200 mg PO TWICE A DAY October 03, 2019 1:00am December 21, 2020 4:03pm levothyroxine sodium 0.05 mg oral tablet (15 sources) l-Thyroxine Start: 06-24-2018 End: 07-19-2025 take 1 tablet by mouth once daily Levothyroxine 50 mcg tablet Discontinued 50 ug PO DAILY 90 November 10, 2024 3:25pm July 19, 2025 7:44am Comment on above: Take 1 tablet by rossy every afternoon. lisinopril 20 mg oral tablet (18 sources) Angiotensin Converting Enzyme Inhibitor Start: 07-13-2018 End: 07-18-2025 take 1 tablet by mouth once daily Lisinopril 20 mg tablet Discontinued 20 mg PO DAILY 90 November 10, 2024 3:25pm July 18, 2025 6:22pm Comment on above: TAKE 1 TABLET (20 MG ) ORALLY DAILY meloxicam 7.5 mg oral tablet (1 source) Nonsteroidal Anti-inflammatory Drug Start: 06-25-2018 take 1 tablet by mouth once daily meloxicam (MOBIC) 7.5 mg tablet Take 1 tablet by mouth once daily. 30 tablet 2 06/25/2018 Active Comment on above: Take 1 tablet by rossy once daily. predniSONE 20 mg oral tablet (3 sources) Start: 10-11-2024 End: 07-18-2025 take 2 tablets by mouth once daily Prednisone 20 mg tablet Discontinued 40 mg PO DAILY 20 April 03, 2025 1:22pm July 18, 2025 6:22pm Problems Active Problems Problem Classification Problem Date Documented Date Episodic/Chronic Anxiety disorders (3 sources) Anxiety; Translations: [Anxiety disorder, unspecified] Onset: 07-27-2025 06-22-2018 Chronic Chronic obstructive pulmonary disease and bronchiectasis (2 sources) Bronchitis; Translations: [Bronchitis, not specified as acute or chronic] 12-05-2019 Episodic Coma; stupor; and brain damage (2 sources) Drowsy; Translations: [Somnolence] 06-22-2018 Episodic Disorders of lipid metabolism (1 source) Hyperlipidemia; Translations: [Hyperlipidemia, unspecified] 07-19-2025 Chronic Essential hypertension (2 sources) Hypertensive disorder; Translations: [Essential (primary) hypertension] 08-05-2018 Chronic Headache; including migraine (2 sources) Frequent headache; Translations: [Frequent headaches] 06-22-2018 Episodic Immunizations and screening for infectious disease (2 sources) Needs influenza immunization; Translations: [Encounter for immunization] 08-15-2020 Episodic Malaise and fatigue (2 sources) Fatigue; Translations: [Chronic fatigue, unspecified] 06-22-2018 Chronic Mood disorders (2 sources) Depressive disorder; Translations: [Depression] 08-05-2018 Chronic Other bone disease and musculoskeletal deformities (1 source) Peggy Schlatter disease; 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, excluding foot] Onset: 09-26-2010 09-26-2010 Chronic Other circulatory disease (2 sources) Elevated blood pressure; Translations: [Elevated blood-pressure reading, without diagnosis of hypertension] 07-13-2018 Episodic Other non-traumatic joint disorders (1 source) Swelling of finger joint; Translations: [Effusion, right hand] 12-10-2023 Episodic Other upper respiratory infections (2 sources) Maxillary sinusitis; Translations: [Chronic maxillary sinusitis] 12-05-2019 Chronic Other upper respiratory infections (4 sources) Acute maxillary sinusitis; Translations: [Acute maxillary sinusitis, unspecified] 06-01-2019 Episodic Otitis media and related conditions (7 sources) Otitis media of left ear; Translations: [Otitis media, unspecified, left ear] 11-18-2018 Episodic Thyroid disorders (3 sources) Hypothyroidism; Translations: [Hypothyroidism, unspecified] Onset: 11-12-2024 06-01-2019 Chronic Unclassified (1 source) Pain, unspecified; Translations: [Pain, unspecified] Onset: 06-25-2018 Viral infection (2 sources) Karen-Queen virus disease; Translations: [Infectious mononucleosis, unspecified [...] unspecified foot] Onset: 11-03-2013 11-03-2013 Episodic Unclassified (2 sources) FX ANKLE IN THE GROWTH PLATE 05-26-2022 Results Test Name Value Interpretation Reference Range Facility Absolute lymphocyte countOrd ered By: Janice Powell on 07-18-2025 Lymphocytes Auto (Unsp spec) [#/Vol] 2.45 10*3/uL 0.83-4.51 [facility] Absolute neutrophil countOrd ered By: Janice Powell on 07-18-2025 Neutrophils (Bld) [#/Vol] 3.7 10*3/uL 2.0-7.7 [facility] Anion gap in Serum or Plasma Ordered By: Janice Powell on 07-18-2025 Anion gap [Moles/Vol] 13 mmol/L 5-15 [facility] Automated lymphocyte count a s percentage of total leukocytesOrdered By: Janice Powell on 07-18-2025 Lymphocytes/100 WBC Auto (Unsp spec) 35.2 % - [facility] BUN/creatinine ratioOrdered By: Janice Powell on 07-18-2025 Urea nitrogen/Creatinine [Mass ratio] 15.1 mg/mg 10- [facility] Basophil percentageOrdered B y: Janice Powell on 07-18-2025 Basophils/100 WBC (Bld) 0.6 % 0-1 [facility] Bilirubin, totalOrdered By: Janice Powell on 07-18-2025 Bilirubin [Mass/Vol] 0.27 mg/dL 0.00-1.30 [facility] CBC W/Diff, Automatedon 06-27 Absolute Lymph 2.45 X10 3/uL Normal 0.83-4.51 [facility] Comment on above: Performed By: #### L [id number], L500.4100, L500.4050, L100.0100 #### [facility] [address] [place], [address] Absolute Neut 3.7 X10 3/uL Normal 2.0-7.7 [facility] Comment on above: Performed By: #### L [id number], L500.4100, L500.4050, L100.0100 #### [facility] [address] [place], [address] Basophils/100 WBC (Bld) 0.6 % Normal 0-1 [facility] Comment on above: Performed By: #### L [id number], L500.4100, L500.4050, L100.0100 #### [facility] [address] [place], [address] Eosinophils/100 WBC (Bld) 2.4 % Normal 0-5 [facility] Comment on above: Performed By: #### L [id number], L500.4100, L500.4050, L100.0100 #### [facility] [address] [place], [address] Erythrocyte distribution width (RBC) [Ratio] 12.2 % Normal 11.6-14.6 [facility] Comment on above: Performed By: #### L [id number], L500.4100, L500.4050, L100.0100 #### [facility] [address] [place], [address] Hematocrit (Bld) [Volume fraction] 45.8 % Normal 40-54 [facility] Comment on above: Performed By: #### L [id number], L500.4100, L500.4050, L100.0100 #### [facility] [address] [place], [address] Hemoglobin (Bld) [Mass/Vol] 15.3 g/dL Normal 13.0-16.5 [facility] Comment on above: Performed By: #### L [id number], L500.4100, L500.4050, L100.0100 #### [facility] [address] [place], [address] IG% 0.100 Normal 0.0-0.9 [facility] Comment on above: Result Comment: IG% - Immature Granulocytes (promyelocytes, myelocytes and metamyelocytes) > 1% indicates that a LEFT SHIFT is Present. Performed By: #### L [id number], L500.4100, L500.4050, L100.0100 #### [facility] [address] [place], [address] Lymphocytes/100 WBC (Bld) 35.2 % Normal 19-41 [facility] Comment on above: Performed By: #### L [id number], L500.4100, L500.4050, L100.0100 #### [facility] [address] [place], [address] MCH (RBC) [Entitic mass] 29.3 pg Normal 27.0-32.0 [facility] Comment on above: Performed By: #### L [id number], L500.4100, L500.4050, L100.0100 #### [facility] [address] [place], [address] MCHC (RBC) [Mass/Vol] 33.4 g/dL Normal 32-36 [facility] Comment on above: Performed By: #### L [id number], L500.4100, L500.4050, L100.0100 #### [facility] [address] [place], [address] MCV (RBC) [Entitic vol] 87.6 fL Normal 80-94 [facility] Comment on above: Performed By: #### L [id number], L500.4100, L500.4050, L100.0100 #### [facility] [address] [place], [address] Monocytes/100 WBC (Bld) 7.9 % Normal 0-10 [facility] Comment on above: Performed By: #### L [id number], L500.4100, L500.4050, L100.0100 #### [facility] [address] [place], [address] Neutrophils/100 WBC (Bld) 53.8 % Normal 47-70 [facility] Comment on above: Performed By: #### L [id number], L500.4100, L500.4050, L100.0100 #### [facility] [address] [place], [address] Nucleated RBC (Bld) [#/Vol] 0 10*3/uL Normal 0-5 [facility] Comment on above: Performed By: #### L [id number], L500.4100, L500.4050, L100.0100 #### [facility] [address] [place], [address] Platelet mean volume (Bld) [Entitic vol] 11.7 fL Normal 6.2-12.0 [facility] Comment on above: Performed By: #### L [id number], L500.4100, L500.4050, L100.0100 #### [facility] [address] [place], [address] Platelets (Bld) [#/Vol] 268 10*3/uL Normal 150-450 [facility] Comment on above: Performed By: #### L [id number], L500.4100, L500.4050, L100.0100 #### [facility] [address] [place], [address] RBC (Bld) [#/Vol] 5.23 10*6/uL Normal 4.6-6.2 [facility] Comment on above: Performed By: #### L [id number], L500.4100, L500.4050, L100.0100 #### [facility] [address] [place], [address] RDW SD 39.0 fl Normal 35.1-43.9 [facility] Comment on above: Performed By: #### L [id number], L500.4100, L500.4050, L100.0100 #### [facility] [address] [place], [address] WBC (Bld) [#/Vol] 7.0 10*3/uL Normal 4.4-11.0 [facility] Comment on above: Performed By: #### L [id number], L500.4100, L500.4050, L100.0100 #### [facility] [address] [place], [address] Calculated very low density lipoprotein (VLDL) cholesterol measurementOrdered By: Janice Powell on 07-18-2025 Calculated very low density lipoprotein (VLDL) cholesterol measurement 71 mg/dL High 5-40 [facility] Carbon dioxide, total [Moles /volume] in Central venous bloodOrdered By: Janice Powell on 07-18-2025 CO2 [Moles/Vol] 24.1 mmol/L 21.0-32.0 [facility] Chloride assayOrdered By: Do ra Powell on 07-18-2025 Chloride [Moles/Vol] 102 mmol/L 98-108 [facility] Comprehensive Metabolic Prof ilon 07-18-2025 Albumin [Mass/Vol] 4.8 g/dL Normal 3.5-5.0 [facility] Comment on above: Performed By: #### L [id number], L500.4100, L500.4050, L100.0100 #### [facility] [address] [place], [address] Albumin/Globulin [Mass ratio] 1.5 {ratio} Normal 0.9-2.4 [facility] Comment on above: Performed By: #### L [id number], L500.4100, L500.4050, L100.0100 #### [facility] [address] [place], [address] ALK PHOS 65 U/L Normal 40-129 [facility] Comment on above: Performed By: #### L [id number], L500.4100, L500.4050, L100.0100 #### [facility] [address] [place], [address] ALT [Catalytic activity/Vol] 44 U/L Normal <=46 [facility] Comment on above: Performed By: #### L [id number], L500.4100, L500.4050, L100.0100 #### [facility] [address] [place], [address] AST [Catalytic activity/Vol] 31 U/L Normal <=37 [facility] Comment on above: Performed By: #### L [id number], L500.4100, L500.4050, L100.0100 #### [facility] [address] [place], [address] Bilirubin [Mass/Vol] 0.27 mg/dL Normal 0.00-1.30 [facility] Comment on above: Performed By: #### L [id number], L500.4100, L500.4050, L100.0100 #### [facility] [address] [place], [address] BUN/CRE 15.1 RATIO Normal 10-20 [facility] Comment on above: Performed By: #### L [id number], L500.4100, L500.4050, L100.0100 #### [facility] [address] [place], [address] Calcium [Mass/Vol] 10.1 mg/dL Normal 7.6-11.0 [facility] Comment on above: Performed By: #### L [id number], L500.4100, L500.4050, L100.0100 #### [facility] [address] [place], [address] Chloride [Moles/Vol] 102 mmol/L Normal 98-108 [facility] Comment on above: Performed By: #### L [id number], L500.4100, L500.4050, L100.0100 #### [facility] [address] [place], [address] CO2 [Moles/Vol] 24.1 mmol/L Normal 21.0-32.0 [facility] Comment on above: Performed By: #### L [id number], L500.4100, L500.4050, L100.0100 #### [facility] [address] [place], [address] Creatinine [Mass/Vol] 0.95 mg/dL Normal 0.70-1.20 [facility] Comment on above: Performed By: #### L [id number], L500.4100, L500.4050, L100.0100 #### [facility] [address] [place], [address] GAP 13 Normal 5-15 [facility] Comment on above: Performed By: #### L [id number], L500.4100, L500.4050, L100.0100 #### [facility] [address] [place], [address] GFR/1.73 sq M.predicted among non-blacks MDRD (S/P/Bld) [Vol rate/Area] 112 mL/min/{1.73_m2} Normal >60 [facility] Comment on above: Result Comment: mL/m in/1.73m2 CKD-EPI Creatinine Equation (2020) Performed By: #### L [id number], L500.4100, L500.4050, L100.0100 #### [facility] [address] [place], [address] Globulin (S) [Mass/Vol] 3.2 g/dL Normal 2.2-4.2 [facility] Comment on above: Performed By: #### L [id number], L500.4100, L500.4050, L100.0100 #### [facility] [address] [place], [address] Glucose [Mass/Vol] 91 mg/dL Normal 70-99 [facility] Comment on above: Performed By: #### L [id number], L500.4100, L500.4050, L100.0100 #### [facility] [address] [place], [address] Potassium [Moles/Vol] 4.7 mmol/L Normal 3.3-5.1 [facility] Comment on above: Performed By: #### L [id number], L500.4100, L500.4050, L100.0100 #### [facility] [address] [place], [address] Sodium [Moles/Vol] 139 mmol/L Normal 133-145 [facility] Comment on above: Performed By: #### L [id number], L500.4100, L500.4050, L100.0100 #### [facility] [address] [place], [address] T PROT 8.0 g/dL Normal 5.9-8.4 [facility] Comment on above: Performed By: #### L [id number], L500.4100, L500.4050, L100.0100 #### [facility] [address] [place], [address] Urea nitrogen [Mass/Vol] 14 mg/dL Normal 4-19 [facility] Comment on above: Performed By: #### L [id number], L500.4100, L500.4050, L100.0100 #### [facility] [address] [place], [address] Eosinophil percentageOrdered By: Janice Powell on 07-18-2025 Eosinophils/100 WBC (Bld) 2.4 % 0-5 [facility] Erythrocyte distribution wid th ratioOrdered By: Janice Powell on 07-18-2025 Erythrocyte distribution width (RBC) [Ratio] 12.2 % 11.6-14.6 [facility] Erythrocyte distribution wid th standard deviationOrdered By: Janice Powell on 07-18-2025 Erythrocyte distribution width (RBC) [Ratio] 39.0 fl 35.1-43.9 [facility] Glomerular filtration rate ( GFR) estimation/1.73 sq m using serum, plasma, or whole bOrdered By: Janice Powell on 07-18-2025 GFR/1.73 sq M.predicted among non-blacks MDRD (S/P/Bld) [Vol rate/Area] 112 mL/min/{1.73_m2} >60 [facility] Comment on above: mL/min/1.73m2 CKD-EP I Creatinine Equation (2020) Hematocrit Auto (Bld) [Volum e fraction]Ordered By: Janice Powell on 07-18-2025 Hematocrit (Bld) [Volume fraction] 45.8 % 40-54 [facility] Hemoglobin measurementOrdere d By: Janice Powell on 07-18-2025 Hemoglobin (Bld) [Mass/Vol] 15.3 g/dL 13.0-16.5 [facility] Immature granulocytes/100 WB C Auto (Bld)Ordered By: Janice Powell on 07-18-2025 Immature granulocytes/100 WBC (Bld) 0.100 % 0.0-0.9 [facility] Comment on above: IG% - Immature Granu locytes (promyelocytes, myelocytes and metamyelocytes) > 1% indicates that a LEFT SHIFT is Present. LDL calc ser/plasOrdered By: Janice Powell on 07-18-2025 Cholesterol in LDL [Mass/Vol] 194 mg/dL [facility] Comment on above: Jesqjvhcrv=754-571 m g/dL & Higher Xjle=449 mg/dL or greaterFriedwald Equation for LDL-C Laboratory - Chemistry and C hemistry - challengeOrdered By: Janice Powell on 07-18-2025 AST [Catalytic activity/Vol] 31 U/L <38 [facility] Lipid Profileon 07-18-2025 CHOL:HDL 12.47 Normal [facility] Comment on above: Performed By: #### L [id number], L500.4100, L500.4050, L100.0100 #### [facility] [address] [place], [address] Cholesterol [Mass/Vol] 288 mg/dL High <=200 [facility] Comment on above: Result Comment: Chol esterol level, Desirable <200 mg/dL Borderline high cholesterol 200-239 mg/dL High cholesterol >=240 mg/dL Recommendations of the NCEP Adult Treatment Panel for the following risk-cutoff thresholds for the [place] population. Performed By: #### L [id number], L500.4100, L500.4050, L100.0100 #### [facility] [address] [place], [address] Cholesterol in HDL [Mass/Vol] 23 mg/dL Low [facility] Comment on above: Result Comment: Naila onal Cholesterol Education Program (NCEP) guidelines: <40 mg/dL: Low HDL-cholesterol (major risk factor for CHD) >= 60 mg/dL: High HDL-cholesterol (negative risk factor for CHD) HDL-cholesterol is affected by a number of factors, e.g. smoking, exercise, hormones, sex and age. Performed By: #### L [id number], L500.4100, L500.4050, L100.0100 #### [facility] [address] [place], [address] Cholesterol in LDL [Mass/Vol] 194 mg/dL Normal [facility] Comment on above: Result Comment: Bord rskdyk=036-673 mg/dL Higher Tqek=303 mg/dL or greater Friedwald Equation for LDL-C Performed By: #### L [id number], L500.4100, L500.4050, L100.0100 #### [facility] [address] [place], [address] Cholesterol in VLDL [Mass/Vol] 71 mg/dL High 5-40 [facility] Comment on above: Performed By: #### L [id number], L500.4100, L500.4050, L100.0100 #### [facility] [address] [place], [address] Triglyceride [Mass/Vol] 356 mg/dL High [facility] Comment on above: Result Comment: The drugs N-Acetylcysteine and Metamizole may falsely depress this assay. Normal range: <150 mg/dL Borderline High: 150-199 mg/dL High: 200-499 mg/dL Very High: >500 mg/dL Performed By: #### L [id number], L500.4100, L500.4050, L100.0100 #### [facility] [address] [place], [address] MCV (mean corpuscular volume ) determinationOrdered By: Janice Powell on 07-18-2025 MCV (RBC) [Entitic vol] 87.6 fL 80-94 [facility] Mean corpuscular hemoglobin (MCH) determinationOrdered By: Janice Powell on 07-18-2025 MCH (RBC) [Entitic mass] 29.3 pg 27.0-32.0 [facility] Mean corpuscular hemoglobin concentration (MCHC) determinationOrdered By: Janice Powell on 07-18-2025 MCHC (RBC) [Mass/Vol] 33.4 g/dL 32-36 [facility] Mean platelet volume determi nationOrdered By: Janice Powell on 07-18-2025 Platelet mean volume (Bld) [Entitic vol] 11.7 fL 6.2-12.0 [facility] Monocyte percentageOrdered B y: Janice Powell on 07-18-2025 Monocytes/100 WBC (Bld) 7.9 % 0-10 [facility] Neutrophil percentageOrdered By: Janice Powell on 07-18-2025 Neutrophils/100 WBC (Bld) 53.8 % 47-70 [facility] Nucleated red blood cell per centageOrdered By: Janice Powell on 07-18-2025 Nucleated RBC/100 WBC (Bld) [Ratio] 0 % 0-5 [facility] Platelet countOrdered By: Do ra Powell on 07-18-2025 Platelets (Bld) [#/Vol] 268 10*3/uL 150-450 [facility] Potassium measurement (mass/ volume)Ordered By: Janice Powell on 07-18-2025 Potassium (Unsp spec) [Mass/Vol] 4.7 mmol/L 3.3-5.1 [facility] RBC Auto (Bld) [#/Vol]Ordere d By: Janice Powell on 07-18-2025 RBC (Bld) [#/Vol] 5.23 10*6/uL 4.6-6.2 [facility] Screening total cholesterol/ high density lipoprotein (HDL) cholesterol ratioOrdered By: Janice Powell on 07-18-2025 Cholesterol.total/Choles terol in HDL [Mass ratio] 12.47 {ratio} [facility] Serum creatinine measurement (mass/volume)Ordered By: Janice Powell on 07-18-2025 Creatinine [Mass/Vol] 0.95 mg/dL 0.70-1.20 [facility] Serum globulin measurementOr dered By: Janice Powell on 07-18-2025 Globulin (S) [Mass/Vol] 3.2 g/dL 2.2-4.2 [facility] Serum glucose measurement (m ass/volume)Ordered By: Janice Powell on 07-18-2025 Glucose [Mass/Vol] 91 mg/dL 70-99 [facility] Serum or plasma alanine diaz otransferase (ALT) measurementOrdered By: Janice Powell on 07-18-2025 ALT [Catalytic activity/Vol] 44 U/L <47 [facility] Serum or plasma albumin ketty urement (mass/volume)Ordered By: Janice Powell on 07-18-2025 Albumin [Mass/Vol] 4.8 g/dL 3.5-5.0 [facility] Serum or plasma albumin/glob ulin mass ratioOrdered By: Janice Powell on 07-18-2025 Albumin/Globulin [Mass ratio] 1.5 {ratio} 0.9-2.4 [facility] Serum or plasma alkaline joselo sphatase measurementOrdered By: Janice Powell on 07-18-2025 ALP [Catalytic activity/Vol] 65 U/L 40-129 [facility] Serum or plasma calcium ketty urement (mass/volume)Ordered By: Janice Powell on 07-18-2025 Calcium [Mass/Vol] 10.1 mg/dL 7.6-11.0 [facility] Serum or plasma cholesterol in HDL measurement (mass/volume)Ordered By: Janice Powell on 07-18-2025 Cholesterol in HDL [Mass/Vol] 23 mg/dL Low >40 [facility] Comment on above: National Cholesterol Education Program (NCEP) guidelines:<40 mg/dL: Low HDL-cholesterol (major risk factor for CHD)>= 60 mg/dL: High HDL-cholesterol (negative risk factor for CHD)HDL-cholesterol is affected by a number of factors, e.g. smoking, exercise, hormones, sex and age. Serum or plasma cholesterol measurement (mass/volume)Ordered By: Janice Powell on 07-18-2025 Cholesterol [Mass/Vol] 288 mg/dL High <201 [facility] Comment on above: Cholesterol level, D esirable <200 mg/dLBorderline high cholesterol 200-239 mg/dLHigh cholesterol >=240 mg/dLRecommendations of the NCEP Adult Treatment Panel for the following risk-cutoff thresholds for the [place] population. Serum or plasma urea nitroge n measurement (mass/volume)Ordered By: Janice Powell on 07-18-2025 Urea nitrogen [Mass/Vol] 14 mg/dL 4-19 [facility] Sodium levelOrdered By: Janice Powell on 07-18-2025 Sodium [Moles/Vol] 139 mmol/L 133-145 [facility] TSH DL <= 0.005 mIU/L QnOrde red By: Janice Powell on 07-18-2025 TSH Qn 2.970 uIU/mL 0.300-4.200 [facility] Thyroid Stim Hormone (TSH)on 07-18-2025 TSH 2.970 uIU/mL Normal 0.300-4.200 [facility] Comment on above: Performed By: #### L 501.9520, L500.4100, L500.4050, L100.0100 #### [facility] [address] [place], [address] Total proteinOrdered By: Duarte Powell on 07-18-2025 Protein [Mass/Vol] 8.0 g/dL 5.9-8.4 [facility] Triglycerides measurementOrd ered By: Janice Powell on 07-18-2025 Triglyceride [Mass/Vol] 356 mg/dL High <199 [facility] Comment on above: The drugs N-Acetylcy steine and Metamizole may falsely depress this assay. Normal range: <150 mg/dLBorderline High: 150-199 mg/dLHigh: 200-499 mg/dLVery High: >500 mg/dL White blood cell (WBC) count Ordered By: Janice Powell on 07-18-2025 WBC (Bld) [#/Vol] 7.0 10*3/uL 4.4-11.0 [facility] CBC W/Diff, Automatedon 12- Absolute Lymph 2.97 X10 3/uL Normal 0.83-4.51 [facility] Comment on above: Performed By: #### L 500.4050, L100.0100, L500.4100, L501.9520 #### [facility] [address] [place], [address] Absolute Neut 4.1 X10 3/uL Normal 2.0-7.7 [facility] Comment on above: Performed By: #### L 500.4050, L100.0100, L500.4100, L501.9520 #### [facility] [address] [place], [address] Basophils/100 WBC (Bld) 0.6 % Normal 0-1 [facility] Comment on above: Performed By: #### L 500.4050, L100.0100, L500.4100, L501.9520 #### [facility] [address] [place], [address] Eosinophils/100 WBC (Bld) 3.1 % Normal 0-5 [facility] Comment on above: Performed By: #### L 500.4050, L100.0100, L500.4100, L501.9520 #### [facility] [address] [place], [address] Erythrocyte distribution width (RBC) [Ratio] 12.1 % Normal 11.6-14.6 [facility] Comment on above: Performed By: #### L 500.4050, L100.0100, L500.4100, L501.9520 #### [facility] [address] [place], [address] Hematocrit (Bld) [Volume fraction] 48.3 % Normal 40-54 [facility] Comment on above: Performed By: #### L 500.4050, L100.0100, L500.4100, L501.9520 #### [facility] [address] [place], [address] Hemoglobin (Bld) [Mass/Vol] 15.4 g/dL Normal 13.0-16.5 [facility] Comment on above: Performed By: #### L 500.4050, L100.0100, L500.4100, L501.9520 #### [facility] [address] [place], [address] IG% 0.100 Normal 0.0-0.9 [facility] Comment on above: Result Comment: IG% - Immature Granulocytes (promyelocytes, myelocytes and metamyelocytes) > 1% indicates that a LEFT SHIFT is Present. Performed By: #### L 500.4050, L100.0100, L500.4100, L501.9520 #### [facility] [address] [place], [address] Lymphocytes/100 WBC (Bld) 36.8 % Normal 19-41 [facility] Comment on above: Performed By: #### L 500.4050, L100.0100, L500.4100, L501.9520 #### [facility] [address] [place], [address] MCH (RBC) [Entitic mass] 28.1 pg Normal 27.0-32.0 [facility] Comment on above: Performed By: #### L 500.4050, L100.0100, L500.4100, L501.9520 #### [facility] [address] [place], [address] MCHC (RBC) [Mass/Vol] 31.9 g/dL Low 32-36 [facility] Comment on above: Performed By: #### L 500.4050, L100.0100, L500.4100, L501.9520 #### [facility] [address] [place], [address] MCV (RBC) [Entitic vol] 88.1 fL Normal 80-94 [facility] Comment on above: Performed By: #### L 500.4050, L100.0100, L500.4100, L501.9520 #### [facility] [address] [place], [address] Monocytes/100 WBC (Bld) 9.1 % Normal 0-10 [facility] Comment on above: Performed By: #### L 500.4050, L100.0100, L500.4100, L501.9520 #### [facility] [address] [place], [address] Neutrophils/100 WBC (Bld) 50.3 % Normal 47-70 [facility] Comment on above: Performed By: #### L 500.4050, L100.0100, L500.4100, L501.9520 #### [facility] [address] [place], [address] Nucleated RBC (Bld) [#/Vol] 0 10*3/uL Normal 0-5 [facility] Comment on above: Performed By: #### L 500.4050, L100.0100, L500.4100, L501.9520 #### [facility] [address] [place], [address] Platelet mean volume (Bld) [Entitic vol] 11.3 fL Normal 6.2-12.0 [facility] Comment on above: Performed By: #### L 500.4050, L100.0100, L500.4100, L501.9520 #### [facility] [address] [place], [address] Platelets (Bld) [#/Vol] 293 10*3/uL Normal 150-450 [facility] Comment on above: Performed By: #### L 500.4050, L100.0100, L500.4100, L501.9520 #### [facility] [address] [place], [address] RBC (Bld) [#/Vol] 5.48 10*6/uL Normal 4.6-6.2 [facility] Comment on above: Performed By: #### L 500.4050, L100.0100, L500.4100, L501.9520 #### [facility] [address] [place], [address] RDW SD 39.3 fl Normal 35.1-43.9 [facility] Comment on above: Performed By: #### L 500.4050, L100.0100, L500.4100, L501.9520 #### [facility] [address] [place], [address] WBC (Bld) [#/Vol] 8.1 10*3/uL Normal 4.4-11.0 [facility] Comment on above: Performed By: #### L 500.4050, L100.0100, L500.4100, L501.9520 #### [facility] [address] [place], [address] Comprehensive Metabolic [facility] 10-11-2024 Albumin [Mass/Vol] 4.5 g/dL Normal 3.2-5.0 [facility] Comment on above: Performed By: #### L 500.4050, L100.0100, L500.4100, L501.9520 #### [facility] [address] [place], [address] Albumin/Globulin [Mass ratio] 1.1 {ratio} Normal 0.9-2.4 [facility] Comment on above: Performed By: #### L 500.4050, L100.0100, L500.4100, L501.9520 #### [facility] [address] [place], [address] ALK P 77 U/L Normal 45-117 [facility] Comment on above: Performed By: #### L 500.4050, L100.0100, L500.4100, L501.9520 #### [facility] [address] [place], [address] ALT [Catalytic activity/Vol] 84 U/L High 16-61 [facility] Comment on above: Performed By: #### L 500.4050, L100.0100, L500.4100, L501.9520 #### [facility] [address] [place], [address] AST [Catalytic activity/Vol] 26 U/L Normal 15-37 [facility] Comment on above: Performed By: #### L 500.4050, L100.0100, L500.4100, L501.9520 #### [facility] [address] [place], [address] Bilirubin [Mass/Vol] 0.30 mg/dL Normal 0.20-1.00 [facility] Comment on above: Result Comment: For patients on eltrombopag therapy, use of Dimension [place] TBIL is not recommended. Performed By: #### L 500.4050, L100.0100, L500.4100, L501.9520 #### [facility] [address] [place], [address] BUN/CRE 17.1 RATIO Normal 10-20 [facility] Comment on above: Performed By: #### L 500.4050, L100.0100, L500.4100, L501.9520 #### [facility] [address] [place], [address] CA,Total 9.6 mg/dL Normal 8.5-10.1 [facility] Comment on above: Performed By: #### L 500.4050, L100.0100, L500.4100, L501.9520 #### [facility] [address] [place], [address] Chloride [Moles/Vol] 104 mmol/L Normal 98-107 [facility] Comment on above: Performed By: #### L 500.4050, L100.0100, L500.4100, L501.9520 #### [facility] [address] [place], [address] CO2 [Moles/Vol] 30.0 mmol/L Normal 21.0-32.0 [facility] Comment on above: Performed By: #### L 500.4050, L100.0100, L500.4100, L501.9520 #### [facility] [address] [place], [address] Creatinine [Mass/Vol] 0.94 mg/dL Normal 0.70-1.30 [facility] Comment on above: Result Comment: The validity of the calculated GFR GFRAA in patients over 70 years has not been determined. Clinical correlation is essential. Performed By: #### L 500.4050, L100.0100, L500.4100, L501.9520 #### [facility] [address] [place], [address] EST GFR - AA 125 mL/min Normal >60 [facility] Comment on above: Result Comment: Afri can [place] GFR Calc Performed By: #### L 500.4050, L100.0100, L500.4100, L501.9520 #### [facility] [address] [place], [address] GAP 2 Low 5-15 [facility] Comment on above: Performed By: #### L 500.4050, L100.0100, L500.4100, L501.9520 #### [facility] [address] [place], [address] GFR/1.73 sq M.predicted among non-blacks MDRD (S/P/Bld) [Vol rate/Area] 103 mL/min/{1.73_m2} Normal >60 [facility] Comment on above: Result Comment: Non- GFR Calc Performed By: #### L 500.4050, L100.0100, L500.4100, L501.9520 #### [facility] [address] [place], [address] Globulin (S) [Mass/Vol] 4.0 g/dL Normal 2.2-4.2 [facility] Comment on above: Performed By: #### L 500.4050, L100.0100, L500.4100, L501.9520 #### [facility] [address] [place], [address] Glucose [Mass/Vol] 112 mg/dL High 74-106 [facility] Comment on above: Result Comment: Fast ing Glucose result from 100 to 125 mg/dL suggests IMPAIRED HOMEOSTASIS per A.D.A. criteria. Performed By: #### L 500.4050, L100.0100, L500.4100, L501.9520 #### [facility] [address] [place], [address] Potassium [Moles/Vol] 4.8 mmol/L Normal 3.5-5.1 [facility] Comment on above: Performed By: #### L 500.4050, L100.0100, L500.4100, L501.9520 #### [facility] [address] [place], [address] Sodium [Moles/Vol] 136 mmol/L Normal 136-145 [facility] Comment on above: Performed By: #### L 500.4050, L100.0100, L500.4100, L501.9520 #### [facility] [address] [place], [address] T PROT 8.5 g/dL High 6.4-8.2 [facility] Comment on above: Performed By: #### L 500.4050, L100.0100, L500.4100, L501.9520 #### [facility] [address] [place], [address] Urea nitrogen [Mass/Vol] 16 mg/dL Normal 7-18 [facility] Comment on above: Performed By: #### L 500.4050, L100.0100, L500.4100, L501.9520 #### [facility] [address] [place], [address] Lipid Profileon 10-11-2024 Cholesterol [Mass/Vol] 236 mg/dL High 200 [facility] Comment on above: Result Comment: <200 mg/dL Desirable 200-240 mg/dL Borderline >240 mg/dL High Risk Performed By: #### L 500.4050, L100.0100, L500.4100, L501.9520 #### [facility] [address] [place], [address] Cholesterol in HDL [Mass/Vol] 21 mg/dL Low [facility] Comment on above: Result Comment: The drugs N-Acetylcysteine and Metamizole may falsely depress this assay. Reference Range HDL <40 mg/dL Low HDL Cholesterol HDL >or= 60 mg/dL High HDL Cholesterol Performed By: #### L 500.4050, L100.0100, L500.4100, L501.9520 #### [facility] [address] [place], [address] Cholesterol in LDL [Mass/Vol] 137 mg/dL High 0-130 [facility] Comment on above: Performed By: #### L 500.4050, L100.0100, L500.4100, L501.9520 #### [facility] [address] [place], [address] Cholesterol in VLDL [Mass/Vol] 78 mg/dL High 5-40 [facility] Comment on above: Performed By: #### L 500.4050, L100.0100, L500.4100, L501.9520 #### [facility] [address] [place], [address] Triglyceride [Mass/Vol] 389 mg/dL High [facility] Comment on above: Result Comment: The drugs N-Acetylcysteine and Metamizole may falsely depress this assay. Serum Triglycerides Reference Interval Normal <150 mg/dL Borderline high 150 - 199 mg/dL High 200 - 499 mg/dL Very High > or = 500 mg/dL Performed By: #### L 500.4050, L100.0100, L500.4100, L501.9520 #### [facility] [address] [place], [address] Thyroid Stim Hormone (TSH)on 10-11-2024 TSH 1.340 uIU/mL Normal 0.358-3.740 [facility] Comment on above: Performed By: #### L 500.4050, L100.0100, L500.4100, L501.9520 #### [facility] [address] [place], [address] CNOVon 12-10-2023 CNOV Office Visit ([facility]) ROYCE FELDMAN ([id number]) 2000 M Date Time Provider Department 12/10/23 5:45 PM CHAPARRITA BRADY [facility] During your visit today, we recorded the following information about you: Temperature Pulse Respiration Blood pressure 97.4 degrees 85/minute 18/minute 149/94 Weight 127.9 kg Chaparrita Brady APRN.TERMINAL BLOCK ASSEMBLER 12/10/2023 6:25 PM Signed Subjective HPI Nontoxic-appearing male presents urgent care chief complaint right fifth finger pain swelling. Patient states when he woke up this morning noticed some pain over his fifth digit. States he has been working in the [employer] recently for work thought he may have [...] of care. This note was generated using [employer] software. It may contain errors in wording, punctuation, or spelling. Chaparrita Brady APRN.TERMINAL BLOCK ASSEMBLER Allergies As of Date: 12/10/2023 Noted Allergy Reaction (more content not included)... Normal [facility] Absolute lymphocyte countOrd ered By: Janice Powell on 08-07-2023 Lymphocytes Auto (Unsp spec) [#/Vol] 3.04 10*3/uL 0.83-4.51 [facility] Basophil percentageOrdered B y: Janice Powell on 08-07-2023 Basophils/100 WBC (Bld) 0.6 % 0-1 [facility] Bilirubin [Mass/Vol] 0.30 mg/dL 0.20-1.00 [facility] Comment on above: For patients on eltr ombopag therapy, use of Dimension [place] TBIL is not recommended. Chloride [Moles/Vol] 109 mmol/L 98-107 [facility] Cholesterol [Mass/Vol] 262 mg/dL <200 [facility] Comment on above: <200 mg/dL Desirable 200-240 mg/dL Borderline >240 mg/dL High Risk Eosinophils/100 WBC (Bld) 2.9 % 0-5 [facility] Glucose [Mass/Vol] 90 mg/dL 74-106 [facility] Neutrophils (Bld) [#/Vol] 4.1 10*3/uL 2.0-7.7 [facility] Neutrophils/100 WBC (Bld) 51.5 % 47-70 [facility] Potassium [Moles/Vol] 3.7 mmol/L 3.5-5.1 [facility] Protein [Mass/Vol] 7.9 g/dL 6.4-8.2 [facility] Sodium [Moles/Vol] 140 mmol/L 136-145 [facility] Triglyceride [Mass/Vol] 322 mg/dL <199 [facility] Comment on above: The drugs N-Acetylcy steine and Metamizole may falsely depress this assay.Serum Triglycerides Reference Interval Normal <150 mg/dL Borderline high 150 - 199 mg/dL High 200 - 499 mg/dL Very High > or = 500 mg/dL WBC (Bld) [#/Vol] 8.0 10*3/uL 4.4-11.0 [facility] Blood erythrocytes count (nu mber/volume)Ordered By: Janice Powell on 08-07-2023 RBC (Bld) [#/Vol] 4.91 10*6/uL 4.6-6.2 [facility] Blood hemoglobin measurement (mass/volume)Ordered By: Janice Powell on 08-07-2023 Hemoglobin (Bld) [Mass/Vol] 14.3 g/dL 13.0-16.5 [facility] Blood lymphocytes/100 leukoc ytesOrdered By: Janice Powell on 08-07-2023 Lymphocytes/100 WBC (Bld) 37.8 % 19-41 [facility] Blood monocytes/100 leukocyt esOrdered By: Janice Powell on 08-07-2023 Monocytes/100 WBC (Bld) 6.8 % 0-10 [facility] Blood platelet mean volumeOr dered By: Janice Powell on 08-07-2023 Platelet mean volume (Bld) [Entitic vol] 11.2 fL 6.2-12.0 [facility] Determination of erythrocyte mean corpuscular volume (MCV)Ordered By: Janice oPwell on 08-07-2023 MCV (RBC) [Entitic vol] 87.8 fL 80-94 [facility] Hematocrit Auto (Bld) [Volum e fraction]Ordered By: Janice Powell on 08-07-2023 Hematocrit (Bld) [Volume fraction] 43.1 % 40-54 [facility] - Chemistry and C hemistry - challengeOrdered By: Janice Powell on 08-07-2023 ALP [Catalytic activity/Vol] 65 U/L 45-117 [facility] ALT [Catalytic activity/Vol] 67 U/L 16-61 [facility] CO2 [Moles/Vol] 25.0 mmol/L 21.0-32.0 [facility] Globulin (S) [Mass/Vol] 3.7 g/dL 2.2-4.2 [facility] Urea nitrogen/Creatinine [Mass ratio] 19.0 mg/mg 10-20 [facility] - Hematology and Cell countsOrdered By: Janice Powell on 08-07-2023 Erythrocyte distribution width (RBC) [Entitic vol] 38.8 fL 35.1-43.9 [facility] Erythrocyte distribution width (RBC) [Ratio] 12.0 % 11.6-14.6 [facility] Immature granulocytes/100 WBC (Bld) 0.400 % 0.0-0.9 [facility] Comment on above: IG% - Immature Granu locytes (promyelocytes, myelocytes and metamyelocytes) > 1% indicates that a LEFT SHIFT is Present. MCH (RBC) [Entitic mass] 29.1 pg 27.0-32.0 [facility] Nucleated RBC/100 WBC (Bld) [Ratio] 0 % 0-5 [facility] MCHC Auto (RBC) [Mass/Vol]Or dered By: Janice Powell on 08-07-2023 MCHC (RBC) [Mass/Vol] 33.2 g/dL 32-36 [facility] No Panel InformationOrdered By: Janice Powell on 08-07-2023 Estimated GFR (MDRD) Amer 124 mL/min >60 [facility] Comment on above: GFR Calc Estimated GFR (MDRD) Non-Af Amer 103 mL/min >60 [facility] Comment on above: Non- GFR Calc Thyroid Stimulating Hormone (TSH) 2.32 uIU/mL 0.358-3.74 [facility] Platelets bldOrdered By: Duarte Powell on 08-07-2023 Platelets (Bld) [#/Vol] 266 10*3/uL 150-450 [facility] Serum or plasma albumin ketty urement (mass/volume)Ordered By: Janice Powell on 08-07-2023 Albumin [Mass/Vol] 4.2 g/dL 3.2-5.0 [facility] Serum or plasma albumin/glob ulin mass ratioOrdered By: Janice Powell on 08-07-2023 Albumin/Globulin [Mass ratio] 1.1 {ratio} 0.9-2.4 [facility] Serum or plasma calcium ketty urement (mass/volume)Ordered By: Janice Powell on 08-07-2023 Calcium [Mass/Vol] 9.1 mg/dL 8.5-10.1 [facility] Serum or plasma cholesterol in HDL measurement (mass/volume)Ordered By: Janice Powell on 08-07-2023 Cholesterol in HDL [Mass/Vol] 25 mg/dL >40 [facility] Comment on above: The drugs N-Acetylcy steine and Metamizole may falsely depress this assay. Reference Range HDL <40 mg/dL Low HDL Cholesterol HDL >or= 60 mg/dL High HDL Cholesterol Serum or plasma cholesterol in VLDL measurement (mass/volume)Ordered By: Janice Powell on 08-07-2023 Cholesterol in VLDL [Mass/Vol] 64 mg/dL 5-40 [facility] Serum or plasma creatinine m easurement (mass/volume)Ordered By: Janice Powell on 08-07-2023 Creatinine [Mass/Vol] 0.95 mg/dL 0.70-1.30 [facility] Comment on above: The validity of the calculated GFR & GFRAA in patients over 70 years has not been determined. Clinical correlation is essential. Serum or plasma low density lipoprotein (LDL) cholesterol measurement (mass/volume)Ordered By: Janice Powell on 08-07-2023 Cholesterol in LDL [Mass/Vol] 173 mg/dL 0-130 [facility] Serum or plasma urea nitroge n measurement (mass/volume)Ordered By: Janice Powell on 08-07-2023 Urea nitrogen [Mass/Vol] 18 mg/dL 7-18 [facility] Thin prep Papanicolaou smear with manual screeningOrdered By: Janice Powell on 08-07-2023 Thin prep Papanicolaou smear with manual screening 27 U/L 15-37 [facility] Thin prep Papanicolaou smear with manual screening 6 5-15 [facility] PROGRESSon 06-25-2018 Protein mass conc HNO ID: [id number]: Luz (Ct) ROSALVA Pickeringervice: (none)Author Type: Clinical TechnicianType: Progress NotesFiled: 06/25/2018 10:52 AMNote Text:NAME:Royce Sprague: June 25, 2020CCF#: [id number] Extremity X-Ray(s): Knee, AP / Lat / Tunne / Merchant Right and Wt.Bearing COMPLETEDTECH ID SIGN: [facility] XR KNEE 4V AP/PA BOTH+LAT/ME R RTon 06-25-2018 XR KNEE 4V AP/PA BOTH+LAT/TARI RT * * *Final Report* * *DATE OF EXAM: Jun 25 2018 10:50AM O [id number] - XR KNEE 4V AP/PA BOTH+LAT/TARI RT / REASON: [id number], unspecified * * * * Physician Interpretation * * * * PROCEDURE: Right kneeINDICATION: Pain, unspecified .TECHNIQUE: XR KNEE 4V AP/PA BOTH+LAT/TARI RTCOMPARISON: NoneFINDINGS:Joint spaces are maintained. No fracture or joint effusion. Soft tissues are unremarkable.IMPRESS ION: NegativeTranscriptio nist: PSCB Transcribe Date/Time: Jun 25 2018 10:56ADictated by : AKUA BROWN MDThis examination was interpreted and the report reviewed and electronically signed by: AKUA BROWN MD on Jun 25 2018 10:57AM [id number] [facility] Vital Signs Date Time Vital Sign Value Performing Clinician Facility 12-10-2023 17:51-0500 Body temperature 97.39 [degF] Chaparrita Brady HOSPITAL MEDICINE DIRECTOR.TERMINAL BLOCK ASSEMBLER Work Phone: [facility] 12-10-2023 17:51-0500 Body weight 127.91 kg Chaparrita Brady HOSPITAL MEDICINE DIRECTOR.TERMINAL BLOCK ASSEMBLER Work Phone: [facility] 12-10-2023 17:51-0500 Diastolic blood pressure 94 mm[Hg] Chaparrita Brady HOSPITAL MEDICINE DIRECTOR.TERMINAL BLOCK ASSEMBLER Work Phone: [facility] 12-10-2023 17:51-0500 Heart rate 85 /min Chaparritapete Brady HOSPITAL MEDICINE DIRECTOR.TERMINAL BLOCK ASSEMBLER Work Phone: [facility] 12-10-2023 17:51-0500 Respiratory rate 18 /min Chaparrita Brady HOSPITAL MEDICINE DIRECTOR.TERMINAL BLOCK ASSEMBLER Work Phone: [facility] 12-10-2023 17:51-0500 SaO2% (BldA) [Mass fraction] 100 % Chaparritapete Brady HOSPITAL MEDICINE DIRECTOR.TERMINAL BLOCK ASSEMBLER Work Phone: [facility] 12-10-2023 17:51-0500 Systolic blood pressure 149 mm[Hg] Chaparrita Romanwong HOSPITAL MEDICINE DIRECTOR.TERMINAL BLOCK ASSEMBLER Work Phone: [facility] 08-07-2023 18:56-0400 Body height 177.8 cm [facility] 08-07-2023 18:56-0400 Body mass index (BMI) [Ratio] 38.7 kg/m2 [facility] 08-07-2023 18:56-0400 Body temperature 97.5 [degF] [facility] 08-07-2023 18:56-0400 Body weight 122.46 kg [facility] 08-07-2023 18:56-0400 Diastolic blood pressure 80 mm[Hg] [facility] 08-07-2023 18:56-0400 Heart rate 97 /min [facility] 08-07-2023 18:56-0400 Respiratory rate 18 /min [facility] 08-07-2023 18:56-0400 SaO2% (BldA) [Mass fraction] 98 % [facility] 08-07-2023 18:56-0400 Systolic blood pressure 122 mm[Hg] [facility] Encounters Encounter Date Encounter Type Care Provider Facility Start: 07-18-2025 End: 07-18-2025 ambulatory Janice Powell BICYCLE SUBASSEMBLER-C Work Phone: -Laboratory Specimen Start: 07-18-2025 End: 07-18-2025 Patient encounter procedure Janice Powell BICYCLE SUBASSEMBLER-C -Laboratory Specimen Work Phone: Start: 07-18-2025 End: 07-18-2025 ambulatory Janice Powell BICYCLE SUBASSEMBLER Facility:[facility] Start: 10-11-2024 End: 10-11-2024 ambulatory Janice Powell BICYCLE SUBASSEMBLER Facility:[facility] Start: 12-10-2023 End: 12-10-2023 ambulatory SANIYA ROTH Facility:[facility] Start: 12-10-2023 End: 12-10-2023 Office outpatient new 20 minutes Chaparrita Brady APRN.CNP Work Phone: [facility] Comment on above: Finger joint swellin g, right (Primary Dx) Start: 08-07-2023 End: 08-07-2023 ambulatory [facility] Work Phone: Start: 08-07-2023 End: 08-07-2023 Patient encounter procedure [facility]-Laboratory, Specimen Work Phone: Start: 06-25-2018 End: 06-25-2018 Patient encounter [facility] Plan of Treatment Date Care Activity Detail Author Start: 10-26-2023 Depression Assessment Depression Ass essment [facility] Start: 06-26-2023 Influenza vaccination Influenza Vacc ine (#1) [facility] Start: 2016 Hepatitis C screening Hepatitis C Sc misa [facility] Start: 2016 HIV screening HIV Screening [facility] Start: 2012 Peds To Adult Transi tion Annual Assessment Peds To Adult Transition Annual Assessment [facility] Start: 2010 Peds To Adult Transi tion Initial Discussion Peds To Adult Transition Initial Discussion [facility] Start: 2009 Urine microalbumin profile DTa P,Tdap,Td Vaccine (6 - Tdap) [facility] Start: 2007 HPV Vaccine (1 - Mal e 2-dose series) HPV Vaccine (1 - Male 2-dose series) [facility] Start: 1998 Covid-19 Vaccine (#1) Covid-19 Vacci ne (#1) [facility] Start: 1998 Hepatitis B Vaccine (1 of 3 - 3-dose series) Hepatitis B Vaccine (1 of 3 - 3-dose series) [facility] Payers Date Payer Category Payer Self-pay [id number] 2023 Unknown [id number] 2023 Unknown MMO MMO [employer] PPO [id number] 2023-Present [phone] [address] [place] [address] PPO [id number] Unknown ANTHEM [id number] Unknown MED [employer] TPA [id number] Unknown [id number] Unknown [id number] Social History Date Type Detail Facility Start: 10-08-2022 Tobacco smoking stat us [facility] Unknown if ever smoked [facility] Start: 2000 Sex Assigned At Male [facility] Start: 10-08-2022 End: 12-10-2023 Tobacco smoking status NHIS Never smoked tobacco [facility] Start: 12-10-2023 Tobacco use and exposure Smokeless tobacco non-user [facility] Start: 10-01-2020 End: 12-10-2023 History of Social function [facility] Start: 10-01-2020 End: 12-10-2023 Tobacco use panel [facility] National Score (1-100), lower number is lower risk Not on file [facility] Start: 1998 Sex Assigned At Not on file [facility] Progress note 12-10-2023 Note Date & Type Note Facility 12-10-2023 Note HNO ID: [id number] Author: CHAPARRITA BRADY APRN.TERMINAL BLOCK ASSEMBLER Service: ? Author Type: Nurse Practitioner Type: Progress Notes Filed: 12/10/2023 18:25 Note Text: Subjective HPI Nontoxic-appearing male presents urgent care chief complaint right fifth finger pain swelling. Patient states when he woke up this morning noticed some pain over his fifth digit. States he has been working in the [employer] recently for work thought he may have [...] of care. This note was generated using [employer] software. It may contain errors in wording, punctuation, or spelling. Chaparrita Brady APRN.YESENIA [facility] History of Present illness Narrative 12-10-2023 Chaparrita [...] States he has been working in the [employer] recently for work thought he may have [...] of care. This note was generated using [employer] software. It may contain errors in wording, punctuation, or spelling. Chaparrita Brady APRN.TERMINAL BLOCK ASSEMBLER documented in this encounter [facility] Evaluation note Note Date & Type Note Facility Evaluation note Diagnosis Onset Date Hypothyroid acute Hypertension chronic [facility] Work Phone: Evaluation note Note Date & Type Note Facility Evaluation note Diagnosis Finger joint swelling, right- Primary documented in this encounter [facility] Evaluation note Note Date & Type Note Facility Evaluation note No assessment information availa ble [facility] Work Phone: Reason for referral (narrative) Note Date & Type Note Facility Reason for referral (narrative) No reason for referral information available [facility] Work Phone: Summary Purpose Family History No Family History [...] section and content) DATE CREATED AUTHOR 06/29/2018 [facility] DATE CREATED AUTHOR AUTHOR'S ORGANIZ ATION 12/12/2023 [facility] DATE CREATED AUTHOR AUTHOR'S ORGANIZ ATION 08/01/2025 [facility] Care Teams (unrecognized sec tion and content) Team Status: Active Member Role Status Dates Janice Powell BICYCLE SUBASSEMBLER, BICYCLE SUBASSEMBLER-C Family Provider Active Janice Powell BICYCLE SUBASSEMBLER, BICYCLE SUBASSEMBLER-C Primary Care Provider Active Team Status: Inactive Member Role Status Dates Janice Powell BICYCLE SUBASSEMBLER, BICYCLE SUBASSEMBLER-C Primary Care Pr ovider, Attending Provider, Referring Provider Active Team Status: Inactive Member Role Status Dates Janice Powell NP BICYCLE SUBASSEMBLER-C Primary Care Provider, Attend ing Provider Active [employer] Relationship Specialty Start Date End Date Saniya Roth MD PCP - General Family Medicine 11/08/10 Team Status: Active Member Role/Relationship Status Dates Janice Powell BICYCLE SUBASSEMBLER, BICYCLE SUBASSEMBLER-C Primary care physician Active Team Status: Inactive Member Role/Relationship Status Dates Janice Powell NP, BICYCLE SUBASSEMBLER-C Primary care physician Active Start: July 18, 2025 End: July 18, 2025 Janice Powell NP BICYCLE SUBASSEMBLER-C Attending physician Active Start: July 18, 2025 End: July 18, 2025 Goals (unrecognized section and content) Goals may be documented in a n alternate sectionGoals may be documented in an alternate section Source Comments (unrecognize d section and content) In the event this informatio n is protected by the Federal Confidentiality of Alcohol and Drug Abuse Patient Records regulations: The Federal rules restrict any use of the information to criminally investigate or prosecute any alcohol or drug abuse patient.[facility] Reason for Visit (unrecogniz ed section and [...] BE BASED ON THE PRIMARY CLINICAL RECORDS. [facility]. provides no warranty or guarantee of the accuracy or completeness of information in this document.
[2025-10-11 22:07] LABS: Cholesterol 200 mg/dL (<=200); Low Density Lipoprotein Calc. 150 mg/dL; Triglycerides 133 mg/dL; Very Low Density Lipoprotein 27 mg/dL (5-40); cholesterol:hdl ratio screen 7.91
== END | disposition home or self-care (01) ==
PROVIDERS: PCP Nurse Practitioner; Visit Provider Nurse Practitioner
DX: E78.2 Mixed hyperlipidemia (principal)
CPT/HCPCS: 80061